=== PATIENT | female | born 1955 | race Caucasian/White ===

== ENCOUNTER 2018-04-26 11:12 | Inpatient (IN) ==
[2018-04-26] MEDS ORDERED: CLEOCIN 600 MG IV PREMIX 600 MG/50 ML BAG IV ONE (12:05)
[2018-04-26] MEDS ORDERED: MORPHINE SULFATE INJ 4 MG IVP ONE (12:08)
--- NOTE | 2018-04-26 12:15 | DR.GENAD ---
HPI Time Seen Time Seen by Provider: 04/26/18 11:23 PCP Primary Care Physician: MAIKEL AMAYA Complaint/Symptoms Chief Complaint Doctors Comments: Patient has been treated for a skin infection of the left buttock medially, with Bactrim and clindamycin; today she had a bullous lesion and was referred to the ED for evaluation. The lesion was cultured. Chief Complaint:: PT SENT OVER FROM [facility] OFF[facility] WITH C/O HAVING AN ABCESS TO HER BOTTOM AND THAT IT BUSTED SO PT WENT TO SEE PAT TODAY TO GET CULTURES FROM WOUND AND PT TOLD TO COME TO THE ER TO SEE ER RICKEY RABAGO PT STATES SHE HAD SOMETHING BITE HER ON HER BUTT, BR Source History Provided: Patient Mode of Arrival Mode of Arrival: Ambulatory Timing Onset of Chief Complaint: 04/25/18 PMH PMH Past Medical History: Yes Past Medical History: Diabetes and Hypertension Past Surgical History: Yes Past Surgical History Comment: UMBELICAL HERNIA, LAPBAND, TONCILLECTOMY Family History History of Family Medical Conditions: No Social History Does patient currently use any type of tobacco product: No Have you used tobacco products in the last 12 months: No Type of Tobacco Use: None Does any household member use tobacco: No Alcohol Use: None Do you use any recreational Drugs:: No Lives With: Family Lives Where: Home infectious screening In the last 2 months have you had wt loss of >10#?: NO Have you had fever, night sweats or hemotysis?: No Have you traveled outside the country in the last 6 months?: No Isolation: Standard PE Vital Signs Vitals: Temperature 96.2 F Pulse Rate [Left Brachial] 83 Pulse Rate 94 Respiratory Rate 20 Blood Pressure [Left Arm] 108/94 Blood Pressure 93/46 O2 Sat by Pulse Oximetry 97 General Limitations: No Limitations General Appearance: Alert, In No Apparent Distress and In Distress Head Head Exam: Normal Inspection, Atraumatic and Normocephalic ENT ENT Exam: Normal Exam, Normal Oropharynx and Normal External Ear Exam External Ear Exam: Normal External Inspection TM/Canal Exam: Bilateral: Normal Nose Exam: Normal Nose Exam Mouth Exam: Normal Inspection Throat Exam: Normal Inspection Chest Chest Inspection: Normal Inspection and Symmetric Chest Wall Rise Respiratory Respiratory Exam: Normal Lung Sounds Bilat and Accessory Muscle Use Respiratory Exam: Bilateral: Clear to Auscultation Cardiovascular Cardiovascular Exam: Regular Rate and Normal Rhythm Abdominal Exam Abdominal Exam: Normal Inspection and Normal Bowel Sounds Abdominal Tenderness: RUQ, RLQ and LUQ Back Back Exam: Normal Inspection and Full ROM Neurologic Neurological Exam: Alert, Oriented X3 and CN II-XII Intact Psychiatric Psychiatric Exam: Normal Affect and Normal Mood Skin Skin Exam: Warm, Dry, Intact and Other (superficial skin peeling of the bullous lesion with blacken skin underneath. The area was tender. A serous fluid for swabed obtained) COURSE Treatment Treatment: Clindamycin, NS, wound culture Consultation Called: 16:00 Consultation Comments: Dr. Leon agreed to admit for further evaluation and treatment ROR Labs Reviewed Laboratory Results Reviewed?: Yes Result Diagrams: 04/26/18 12:20 04/26/18 12:20 Laboratory: 04/26/18 12:05 Buttock Gram Stain - Final WBC 19.6 X10^3/uL (3.6-10.0) H 04/26/18 12:20 RBC 3.96 X10^6/uL (3.5-5.4) 04/26/18 12:20 Hgb 12.2 g/dL (12.0-16.0) 04/26/18 12:20 Hct 36.1 % (36.0-47.0) 04/26/18 12:20 MCV 91.2 fL (80.0-100.0) 04/26/18 12:20 MCH 30.8 pg (27.0-34.0) 04/26/18 12:20 MCHC 33.7 g/dL (33.0-35.0) 04/26/18 12:20 RDW 13.7 % (11.6-16.5) 04/26/18 12:20 Plt Count 334 X10^3/uL (150.0-450.0) 04/26/18 12:20 Plt Count Comment Adequate (ADEQUATE) 04/26/18 12:20 MPV 8.0 fL (7.4-11.0) 04/26/18 12:20 Neut % (Auto) 92.2 % (42.0-75.0) H 04/26/18 12:20 Lymph % (Auto) 3.5 % (21.0-51.0) L 04/26/18 12:20 [place] % (Auto) 3.7 % (0.0-13.0) 04/26/18 12:20 Eos % (Auto) 0.4 % (0.9-2.9) L 04/26/18 12:20 Baso % (Auto) 0.2 % (0.2-1.0) 04/26/18 12:20 Neut # (Auto) 18.1 x10^3/uL (2.2-4.8) H 04/26/18 12:20 Lymph # (Auto) 0.7 X10^3/uL (1.3-2.9) L 04/26/18 12:20 [place] # (Auto) 0.7 x10^3/uL (0.3-0.8) 04/26/18 12:20 Eos # (Auto) 0.1 x10^3/uL (0.0-0.2) 04/26/18 12:20 Baso # (Auto) 0.0 X10^3/uL (0.0-0.1) 04/26/18 12:20 Absolute Nucleated RBC 0.1 /100WBC 04/26/18 12:20 Total Counted 100 04/26/18 12:20 Neutrophils % (Manual) 77 % (39-76) H 04/26/18 12:20 Band Neutrophils % 10 % (0-10) 04/26/18 12:20 Lymphocytes % (Manual) 11 % (13-43) L 04/26/18 12:20 Monocytes % (Manual) 2 % (4-9) L 04/26/18 12:20 Plt Morphology Comment Normal (NORMAL) 04/26/18 12:20 RBC Morphology Normal (NORMAL) 04/26/18 12:20 Sodium 133 mmol/L (136-145) L 04/26/18 12:20 Corrected Sodium 137 mmol/L (136-145) 04/26/18 12:20 Potassium 3.7 mmol/L (3.5-5.1) 04/26/18 12:20 Chloride 98 mmol/L (98-107) 04/26/18 12:20 Carbon Dioxide 18.6 mmol/L (21-32) L 04/26/18 12:20 BUN 31 mg/dL (7-18) H 04/26/18 12:20 Creatinine 1.29 mg/dL (0.55-1.02) H 04/26/18 12:20 Est GFR (MDRD) Af Amer 54 (>60) L 04/26/18 12:20 Est GFR (MDRD) Non-Af 45 (>60) L 04/26/18 12:20 Glucose 260 mg/dL (65-99) H 04/26/18 12:20 POC Glucose (mg/dL) 248 mg/dL (65-99) H 04/26/18 13:55 Calcium 8.7 mg/dL (8.5-10.1) 04/26/18 12:20 Corrected Calcium 10.5 mg/dL (8.5-10.1) H 04/26/18 12:20 Total Bilirubin 0.40 mg/dL (0.2-1.0) 04/26/18 12:20 AST 17 Units/L (15-37) 04/26/18 12:20 ALT 19 Units/L (12-78) 04/26/18 12:20 Alkaline Phosphatase 181 Units/L (46-116) H 04/26/18 12:20 C-Reactive Protein 3.20 mg/L (0-3.0) H 04/26/18 12:20 Total Protein 6.6 g/dL (6.4-8.2) 04/26/18 12:20 Albumin 1.7 g/dL (3.4-5.0) L 04/26/18 12:20 Globulin 4.9 g/dL (2.5-4.5) H 04/26/18 12:20 Albumin/Globulin Ratio 0.3 Ratio (1.1-2.1) L 04/26/18 12:20
[2018-04-26] MEDS ORDERED: MORPHINE SULFATE INJ 4 MG ONE (12:29)
[2018-04-26] MEDS ORDERED: CLEOCIN VIAL 600 MG ONE (12:29)
[2018-04-26] MEDS ORDERED: NS 100 ML IV 100 ML IV ONE (12:32)
[2018-04-26 12:35] LABS: BASOPHILS % (AUTO) 0.2 % (0.2-1.0); EOSINOPHILS # (AUTO) 0.1 x10^3/uL (0.0-0.2); EOSINOPHILS % (AUTO) 0.4 % (0.9-2.9); HEMATOCRIT 36.1 % (36.0-47.0); HEMOGLOBIN 12.2 g/dL (12.0-16.0); LYMPHOCYTES # (AUTO) 0.7 X10^3/uL (1.3-2.9); LYMPHOCYTES % (AUTO) 3.5 % (21.0-51.0); MEAN CORPUSCULAR HEMOGLOBIN 30.8 pg (27.0-34.0); MEAN CORPUSCULAR HGB CONC 33.7 g/dL (33.0-35.0); MEAN CORPUSCULAR VOLUME 91.2 fL (80.0-100.0); MONOCYTES # (AUTO) 0.7 x10^3/uL (0.3-0.8); MONOCYTES % (AUTO) 3.7 % (0.0-13.0); NEUTROPHILS # (AUTO) 18.1 x10^3/uL (2.2-4.8); NEUTROPHILS % (AUTO) 92.2 % (42.0-75.0); PLATELET COUNT 334 X10^3/uL (150.0-450.0); RED BLOOD COUNT 3.96 X10^6/uL (3.5-5.4); RED CELL DISTRIBUTION WIDTH 13.7 % (11.6-16.5); WHITE BLOOD COUNT 19.6 X10^3/uL (3.6-10.0)
[2018-04-26] MEDS ORDERED: NS 1000 ML 1,000 ML IV SCH (13:00)
[2018-04-26 13:13] LABS: BAND NEUTROPHILS % 10 % (0-10); PLATELET MORPHOLOGY COMMENT NORMAL (NORMAL)
[2018-04-26] MEDS ORDERED: CLEOCIN 300 MG IV PREMIX 300 MG/50 ML BAG IV ONE ×2 (13:31→13:34)
[2018-04-26 14:11] LABS: ALBUMIN 1.7 g/dL (3.4-5.0); CALCIUM 8.7 mg/dL (8.5-10.1); CARBON DIOXIDE 18.6 mmol/L (21-32); COR CA(FOR HYPOALB) 10.5 mg/dL (8.5-10.1); CREATININE 1.29 mg/dL (0.55-1.02); TOTAL PROTEIN 6.6 g/dL (6.4-8.2)
[2018-04-26] MEDS ORDERED: NS 1000 ML 1,000 ML IV ONE (14:25)
[2018-04-26] MEDS ORDERED: CLEOCIN VIAL 600 MG 900 MG in D5W 50 ML IV 50 ML IV SCH (15:00)
[2018-04-26] MEDS ORDERED: NORCO 10/325 TAB PO PRN ×2 (17:12→18:00)
[2018-04-26] MEDS: NS 1000 ML 1,000 ML IV SCH ×2 (17:21→23:20)
[2018-04-26] MEDS: SNACK - Diabetic Appropriate PO SCH (20:00)
[2018-04-26] MEDS: COLACE CAP 100 MG PO SCH (20:58)
[2018-04-26] MEDS: CYMBALTA PO SCH (20:58)
[2018-04-26] MEDS: GENTAMICIN TOPICAL CRM TOP SCH (20:59)
[2018-04-26] MEDS: ULTRAM PO SCH (20:59)
[2018-04-26] MEDS ORDERED: WHITE PETROLATUM TP SCH (21:00)
[2018-04-26] MEDS ORDERED: LANTUS SC SCH (21:00)
[2018-04-26] MEDS ORDERED: [UNRECOGNIZED DRUG - OTHER] TP SCH (21:00)
[2018-04-26] MEDS ORDERED: MINERAL OIL TP SCH (21:00)
[2018-04-26] MEDS: MILK OF MAGNESIA PO SCH (21:03)
[2018-04-26] MEDS ORDERED: CLEOCIN PO SCH (22:00)
[2018-04-26] MEDS ORDERED: CLINDAMYCIN HCL 300 MG PO SCH (22:00)
[2018-04-26] MEDS: CONJ ESTROG MEDROXYPROGEST ACE PO SCH (22:31)
[2018-04-26] MEDS: MORPHINE SULFATE INJ 2 MG INJ IVP PRN (23:08)
[2018-04-27] MEDS: NORCO 5/325 MG TAB PO PRN ×2 (01:44→11:44)
[2018-04-27 02:23] LABS: BILIRUBIN,URINE 2+ (NEGATIVE); BLOOD/HEMOGLOBIN,URINE 3+ (NEGATIVE); GLUCOSE, URINE 1+ (NEGATIVE); KETONES,URINE 1+ (NEGATIVE); LEUKOCYTE ESTERASE ,URINE 1+ (NEGATIVE); NITRITES,URINE NEGATIVE (NEGATIVE); PROTEIN,URINE 2+ (NEGATIVE); UROBILINOGEN,URINE 2+ (NORMAL)
[2018-04-27 02:32] LABS: APPEARANCE,URINE HAZY (CLEAR); BACTERIA,URINE TRACE /HPF (NEGATIVE); COLOR,URINE AMBER (YELLOW); SQUAMOUS EPITHELIAL CELL,UR MODERATE /HPF (NEGATIVE)
[2018-04-27 02:33] LABS: AMORPHOUS SEDIMENT,UR 1+ /HPF (NEGATIVE); HYALINE CASTS, URINE MANY /LPF (NEGATIVE)
[2018-04-27 05:21] LABS: ALBUMIN 1.5 g/dL (3.4-5.0); CALCIUM 8.2 mg/dL (8.5-10.1); CARBON DIOXIDE 20.6 mmol/L (21-32); COR CA(FOR HYPOALB) 10.2 mg/dL (8.5-10.1); CREATININE 1.49 mg/dL (0.55-1.02); TOTAL PROTEIN 6.3 g/dL (6.4-8.2)
[2018-04-27 05:26] LABS: BASOPHILS # (AUTO) 0.1 X10^3/uL (0.0-0.1); BASOPHILS % (AUTO) 0.6 % (0.2-1.0); EOSINOPHILS # (AUTO) 0.1 x10^3/uL (0.0-0.2); EOSINOPHILS % (AUTO) 0.3 % (0.9-2.9); HEMATOCRIT 34.2 % (36.0-47.0); HEMOGLOBIN 11.6 g/dL (12.0-16.0); LYMPHOCYTES # (AUTO) 1.3 X10^3/uL (1.3-2.9); LYMPHOCYTES % (AUTO) 7.6 % (21.0-51.0); MEAN CORPUSCULAR HEMOGLOBIN 30.9 pg (27.0-34.0); MEAN CORPUSCULAR HGB CONC 33.8 g/dL (33.0-35.0); MEAN CORPUSCULAR VOLUME 91.4 fL (80.0-100.0); MONOCYTES # (AUTO) 0.7 x10^3/uL (0.3-0.8); MONOCYTES % (AUTO) 4.1 % (0.0-13.0); NEUTROPHILS # (AUTO) 15.1 x10^3/uL (2.2-4.8); NEUTROPHILS % (AUTO) 87.4 % (42.0-75.0); PLATELET COUNT 317 X10^3/uL (150.0-450.0); RED BLOOD COUNT 3.75 X10^6/uL (3.5-5.4); RED CELL DISTRIBUTION WIDTH 14.1 % (11.6-16.5); WHITE BLOOD COUNT 17.3 X10^3/uL (3.6-10.0)
[2018-04-27] MEDS: HumuLIN R SC PRN ×3 (05:47→22:52)
--- NOTE | 2018-04-27 05:48 | RAD ---
Examination: Portable AP chest History: Dehydration Comparison 05/30/2016 Findings: Continued upper normal heart size with clear lungs and pleural spaces. Impression: Considering technical difference, no change or acute chest abnormality demonstrated. Reported By:
[2018-04-27] MEDS ORDERED: POTASSIUM CHL 40 MEQ/NS 0.45% 500 ML IV PRN (06:07)
[2018-04-27] MEDS ORDERED: K-RIDER 10 MEQ/NS 100 ML 10 MEQ/100 ML BAG IV PRN (06:07)
[2018-04-27] MEDS ORDERED: POTASSIUM CHL 60 MEQ/NS 0.45% 500 ML IV PRN (06:07)
[2018-04-27] MEDS ORDERED: MICRO K EXTEN CAP 10 MEQ PO PRN (06:07)
[2018-04-27] MEDS ORDERED: POTASSIUM CHLORIDE LIQ 20 MEQ UDC PO PRN (06:07)
[2018-04-27 06:25] LABS: BAND NEUTROPHILS % 12 % (0-10); PLATELET MORPHOLOGY COMMENT NORMAL (NORMAL)
[2018-04-27 07:21] VITALS: BMI 38.9
[2018-04-27] MEDS: NS 1000 ML 1,000 ML IV SCH ×3 (07:38→20:56)
[2018-04-27] MEDS ORDERED: PROTONIX TAB 40 MG PO SCH (09:00)
[2018-04-27] MEDS ORDERED: PANTOPRAZOLE 40 MG PO SCH (09:00)
[2018-04-27] MEDS ORDERED: LISDEXAMFETAMINE 50 MG PO SCH (09:00)
[2018-04-27] MEDS: GENTAMICIN TOPICAL CRM TOP SCH ×2 (09:01→21:04)
[2018-04-27] MEDS: ULTRAM PO SCH ×2 (09:01→20:55)
[2018-04-27] MEDS: DITROPAN TAB 5 MG PO SCH (09:01)
[2018-04-27] MEDS: COZAAR PO SCH (09:02)
[2018-04-27] MEDS: LANTUS SC SCH ×2 (09:03→20:55)
[2018-04-27] MEDS: CYMBALTA PO SCH ×2 (09:13→20:55)
[2018-04-27] MEDS: CONJ ESTROG MEDROXYPROGEST ACE PO SCH (10:46)
--- NOTE | 2018-04-27 12:44 | DR.H&P ---
H&P - History & Physical for Day of: H&P Date: 04/26/18 - Chief Complaint Chief Complaint: right buttock abscess - History of Present Illness History of Present Illness: 63 WF ER ADMISSION AFTER PRESENTING WITH CO RIGHT BUTTOCK CELLULITIS. PT CO APPROX 6-7 DAYS SINCE ONSET. PT HAS TAKEN PO BACTRIM AND CLINDAMYCIN WITHOUT IMPROVEMENT. PT CO SEVERE PAIN AND DRAINAGE FROM AREA. PT DENIES FEVER, BUT CO NAUSEA. PT HAS PMH OF DM, OA, MO. PT HAD ELEVATED WBC IN ER, GIVE CLIDAMYCIN. PT ADMITTED FOR TREATMENT OF CELLULITIS. - Past Medical History Past Medical History: Hypertension, Diabetes - Past Surgical History Surgical History: Cholecystectomy, Tonsillectomy - Family History Family Medical History: Diabetes Mellitus, Cancer, Hypertension - Social History Does patient currently use any type of tobacco product: No Have you used tobacco products in the last 12 months: No Type of Tobacco Use: None Does any household member use tobacco: No Alcohol Use: None Drug Use: None - Medications Home Medications: No Known Drug Allergies Allergy (Verified 04/26/18 11:35) CONTINUE taking the following medications clindamycin HCl 300 mg PO TID 04/26/18 [History] conj estrog-medroxyprogest colten [Prempro] 1 tab PO BID 04/26/18 [History] duloxetine 30 mg PO BID 04/26/18 [History] gentamicin 1 amp TOPICAL BID 04/26/18 [History] hydrocodone-acetaminophen [[place]] 1 tab PO PRN PRN 04/26/18 [History] insulin glargine [Lantus U-100 Insulin] 55 units SUBCUT BID 04/26/18 [History] insulin regular human [Novolin R Regular U-100 Insuln] 1 unit SUBCUT PRN PRN 04/26/18 [History] lisdexamfetamine [Vyvanse] 50 mg PO DAILY 04/26/18 [History] losartan 50 mg PO DAILY 04/26/18 [History] min [id number] [Draw Out Salve] 1 g TOPICAL BID 04/26/18 [History] oxybutynin chloride 10 mg PO DAILY 04/26/18 [History] pantoprazole 40 mg PO DAILY 04/26/18 [History] sulfamethoxazole-trimethoprim [Bactrim DS] 1 tab PO BID 04/26/18 [History] tramadol [Ultram] 50 mg PO BID 04/26/18 [History] - Review of Systems Constitutional: No Symptoms Reported Eyes: No Symptoms Reported ENT: No Symptoms Reported Respiratory: No Symptoms Reported Cardiovascular: No Symptoms Reported Gastrointestinal: Nausea Genitourinary: No Symptoms Reported Musculoskeletal: Back Pain Skin: Wound Neurological: No Symptoms Reported - Physical Exam Vital Signs: Temperature 97.6 F Pulse Rate [Right Brachial] 82 Pulse Rate [Left Brachial] 100 Pulse Rate 94 Respiratory Rate 20 Blood Pressure [Right Arm] 128/58 Blood Pressure [Left Arm] 108/94 Blood Pressure 93/46 O2 Sat by Pulse Oximetry 98 Oriented: Normal Eyes: Normal Ear: Normal Nose: Normal Throat: Normal Respiratory: RLL Diminished, LLL Diminished Cardiovascular: Normal : Normal Auscultation: Bowel Sounds: Normal Palpation: Normal Tenderness: Normal Skin: Decreased Turgur, Red, Tender, Hot, Wound (LARGE AREA OF NECROTIC, BLACK TISSUE TO RIGHT BUTTOCK ~10CM LENGTH, 3CM ABSCESS FORMATION WITH THICK GREEN/YELLOW DC WITH DIFFUSE REDNESS) Musculoskeletal: Back:Lumbar Psychiatric: Anxiety Affect: Anxious Speech Pattern: Clear, Appropriate - Assessment/Plan (1) Cellulitis and abscess of buttock Status: Acute Plan: ADMIT, ADMISSION LABS. WOUND CULTURE, IV ATBX, SURGICAL CONSULT FOR I &D. VERIFY HOME MEDS. BLOOD SUGAR CONTROL (2) Necrotic eschar Status: Acute (3) Diabetes Qualifiers: Diabetes mellitus type: due to underlying condition Diabetes mellitus half-way insulin use: with half-way use Diabetes mellitus complication status: with hyperglycemia Qualified Code(s): E08.65 - Diabetes mellitus due to unde rlying condition with hyperglycemia; Z79.4 - truck terminal manager (current) use of insulin Status: Acute - Allergies Allergies/Adverse Reactions: Allergies Allergy/AdvReac Type Severity Reaction Status Date / Time No Known Drug Allergies Allergy Verified 04/26/18 11:35
[2018-04-27] MEDS ORDERED: PHARMACY CONSULT - VANCOMYCIN XX SCH (13:00)
[2018-04-27] MEDS ORDERED: VANCOMYCIN HCL 500 MG VIAL 500 MG, VANCOMYCIN HCL 1 GM VIAL 1 G in NS 250 ML IV 250 ML IV SCH (13:00)
[2018-04-27] MEDS: VANCOMYCIN HCL 500 MG VIAL 250 MG, VANCOMYCIN HCL 1 GM VIAL 1 G in NS 250 ML IV 250 ML IV SCH (13:46)
[2018-04-27] MEDS: MORPHINE SULFATE INJ 2 MG INJ IVP PRN ×2 (13:57→17:51)
[2018-04-27] MEDS ORDERED: VANCOMYCIN HCL 500 MG VIAL 250 MG, VANCOMYCIN HCL 1 GM VIAL 1 G in NS 250 ML IV 250 ML IV SCH (14:00)
[2018-04-27] MEDS: LEVAQUIN PREMIX IV 750 MG 750 MG/150 ML BAG IV SCH (20:55)
[2018-04-27] MEDS: COLACE CAP 100 MG PO SCH (20:56)
[2018-04-27] MEDS ORDERED: CLEOCIN VIAL 600 MG 900 MG in D5W 50 ML IV 50 ML IV SCH (22:00)
[2018-04-27] MEDS: SNACK - Diabetic Appropriate PO SCH (22:29)
[2018-04-27] MEDS: MILK OF MAGNESIA PO SCH (22:30)
[2018-04-27] MEDS: CLEOCIN VIAL 600 MG 900 MG in D5W 50 ML IV 50 ML IV SCH (23:44)
[2018-04-28] MEDS: MORPHINE SULFATE INJ 2 MG INJ IVP PRN ×3 (02:29→22:47)
[2018-04-28 05:30] LABS: BASOPHILS # (AUTO) 0.1 X10^3/uL (0.0-0.1); BASOPHILS % (AUTO) 1.1 % (0.2-1.0); EOSINOPHILS % (AUTO) 0.4 % (0.9-2.9); HEMOGLOBIN 11.5 g/dL (12.0-16.0); LYMPHOCYTES # (AUTO) 1.1 X10^3/uL (1.3-2.9); LYMPHOCYTES % (AUTO) 8.9 % (21.0-51.0); MEAN CORPUSCULAR HEMOGLOBIN 30.7 pg (27.0-34.0); MEAN CORPUSCULAR HGB CONC 33.9 g/dL (33.0-35.0); MEAN CORPUSCULAR VOLUME 90.4 fL (80.0-100.0); MONOCYTES # (AUTO) 0.6 x10^3/uL (0.3-0.8); MONOCYTES % (AUTO) 5.1 % (0.0-13.0); NEUTROPHILS # (AUTO) 10.7 x10^3/uL (2.2-4.8); NEUTROPHILS % (AUTO) 84.5 % (42.0-75.0); PLATELET COUNT 348 X10^3/uL (150.0-450.0); RED BLOOD COUNT 3.76 X10^6/uL (3.5-5.4); WHITE BLOOD COUNT 12.6 X10^3/uL (3.6-10.0)
[2018-04-28] MEDS: CLEOCIN VIAL 600 MG 900 MG in D5W 50 ML IV 50 ML IV SCH ×3 (05:30→22:00)
[2018-04-28 05:45] LABS: ALBUMIN 1.5 g/dL (3.4-5.0); CARBON DIOXIDE 22.2 mmol/L (21-32); CREATININE 1.25 mg/dL (0.55-1.02); TOTAL PROTEIN 6.4 g/dL (6.4-8.2)
[2018-04-28 06:07] LABS: BAND NEUTROPHILS % 8 % (0-10); PLATELET MORPHOLOGY COMMENT NORMAL (NORMAL)
[2018-04-28] MEDS: LANTUS SC SCH ×2 (08:59→20:27)
[2018-04-28] MEDS: GENTAMICIN TOPICAL CRM TOP SCH ×2 (09:01→20:27)
[2018-04-28] MEDS: LEVAQUIN PREMIX IV 750 MG 750 MG/150 ML BAG IV SCH (09:01)
[2018-04-28] MEDS: ULTRAM PO SCH ×2 (09:01→20:26)
[2018-04-28] MEDS: DITROPAN TAB 5 MG PO SCH (09:02)
[2018-04-28] MEDS: COZAAR PO SCH (09:02)
[2018-04-28] MEDS: CYMBALTA PO SCH ×2 (09:06→20:26)
--- NOTE | 2018-04-28 11:33 | PCM.PROG ---
Progress Note - Progress Note for Day of Date of Exam: 04/28/18 - Subjective Subjective: 63 WF ER ADMISSION WITH CELLULITIS AND ABSCESS TO RIGHT BUTTOCK, POSITIVE FOR STAPH. PT CURRENTLY ON IV ATBX, WBC12.6 THIS AM. PT CONTINUES TO CO SEVERE PAIN TO AREA AND FOUL DRAINAGE FOR ABSCESS. SURGEON CONSULTED FOR EVALUATION FOR DEBRIDEMENT/I &D - Past Medical Family Social History Past Med/Fam/Surg Hx: No changes since H&P Allergies: Allergies No Known Drug Allergies Allergy (Verified 04/26/18 11:35) - Review of Systems ROS: No change since H&P - Vital Signs and I&O's Vital Signs: Temperature 98.1 F Pulse Rate [Right Brachial] 84 Pulse Rate [Left Brachial] 100 Pulse Rate 94 Respiratory Rate 18 Blood Pressure [Right Arm] 121/88 Blood Pressure [Left Arm] 108/94 Blood Pressure 93/46 O2 Sat by Pulse Oximetry 98 Intake and Output: Intake & Output 04/25/18 04/26/18 04/27/18 04/28/18 11:59 11:59 11:59 11:59 Intake Total 1289 / 1289 2820 / 2820 Output Total 200 / 200 Balance 1289 / 1289 2620 / 2620 - Physical Exam Oriented: Normal Eyes: Normal Ear: Normal Nose: Normal Throat: Normal Respiratory: Diminished Cardiovascular: Normal : Normal Auscultation: Bowel Sounds: Normal Tenderness: Normal Skin: Decreased Turgur, Red, Tender, Hot, Wound (LARGE AREA OF NECROTIC, BLACK TISSUE TO RIGHT BUTTOCK ~10CM LENGTH, 3CM ABSCESS FORMATION WITH THICK GREEN/YELLOW DC WITH DIFFUSE REDNESS) Musculoskeletal: Back:Lumbar Psychiatric: Anxiety Affect: Anxious Speech Pattern: Clear, Appropriate - Laboratory and Diagnostics Result Diagrams: 04/28/18 04:33 04/28/18 04:33 Labs: 04/26/18 12:05 Buttock Gram Stain - Final 04/26/18 12:05 Buttock Wound Culture - Preliminary Laboratory WBC 12.6 X10^3/uL (3.6-10.0) H 04/28/18 04:33 RBC 3.76 X10^6/uL (3.5-5.4) 04/28/18 04:33 Hgb 11.5 g/dL (12.0-16.0) L 04/28/18 04:33 Hct 34.0 % (36.0-47.0) L 04/28/18 04:33 MCV 90.4 fL (80.0-100.0) 04/28/18 04:33 MCH 30.7 pg (27.0-34.0) 04/28/18 04:33 MCHC 33.9 g/dL (33.0-35.0) 04/28/18 04:33 RDW 14.0 % (11.6-16.5) 04/28/18 04:33 Plt Count 348 X10^3/uL (150.0-450.0) 04/28/18 04:33 Plt Count Comment Adequate (ADEQUATE) 04/28/18 04:33 MPV 8.0 fL (7.4-11.0) 04/28/18 04:33 Neut % (Auto) 84.5 % (42.0-75.0) H 04/28/18 04:33 Lymph % (Auto) 8.9 % (21.0-51.0) L 04/28/18 04:33 [place] % (Auto) 5.1 % (0.0-13.0) 04/28/18 04:33 Eos % (Auto) 0.4 % (0.9-2.9) L 04/28/18 04:33 Baso % (Auto) 1.1 % (0.2-1.0) H 04/28/18 04:33 Neut # (Auto) 10.7 x10^3/uL (2.2-4.8) H 04/28/18 04:33 Lymph # (Auto) 1.1 X10^3/uL (1.3-2.9) L 04/28/18 04:33 [place] # (Auto) 0.6 x10^3/uL (0.3-0.8) 04/28/18 04:33 Eos # (Auto) 0.0 x10^3/uL (0.0-0.2) 04/28/18 04:33 Baso # (Auto) 0.1 X10^3/uL (0.0-0.1) 04/28/18 04:33 Absolute Nucleated RBC 0.0 /100WBC 04/28/18 04:33 Total Counted 100 04/28/18 04:33 Neutrophils % (Manual) 68 % (39-76) 04/28/18 04:33 Band Neutrophils % 8 % (0-10) 04/28/18 04:33 Lymphocytes % (Manual) 15 % (13-43) 04/28/18 04:33 Monocytes % (Manual) 8 % (4-9) 04/28/18 04:33 Eosinophils % (Manual) 1 % (0-6) 04/27/18 04:46 Plt Morphology Comment Normal (NORMAL) 04/28/18 04:33 RBC Morphology Normal (NORMAL) 04/28/18 04:33 Sodium 142 mmol/L (136-145) 04/28/18 04:33 Corrected Sodium 142 mmol/L (136-145) 04/28/18 04:33 Potassium 3.0 mmol/L (3.5-5.1) L* 04/28/18 04:33 Chloride 106 mmol/L (98-107) 04/28/18 04:33 Carbon Dioxide 22.2 mmol/L (21-32) 04/28/18 04:33 BUN 34 mg/dL (7-18) H 04/28/18 04:33 Creatinine 1.25 mg/dL (0.55-1.02) H 04/28/18 04:33 Est GFR (MDRD) Af Amer 56 (>60) L 04/28/18 04:33 Est GFR (MDRD) Non-Af 46 (>60) L 04/28/18 04:33 Glucose 118 mg/dL (65-99) H 04/28/18 04:33 POC Glucose (mg/dL) 143 mg/dL (65-99) H 04/28/18 11:23 Calcium 8.0 mg/dL (8.5-10.1) L 04/28/18 04:33 Corrected Calcium 10.0 mg/dL (8.5-10.1) 04/28/18 04:33 Magnesium 2.2 mg/dL (1.7-2.9) 04/27/18 04:46 Total Bilirubin 0.30 mg/dL (0.2-1.0) 04/28/18 04:33 AST 34 Units/L (15-37) 04/28/18 04:33 ALT 36 Units/L (12-78) 04/28/18 04:33 Alkaline Phosphatase 360 Units/L (46-116) H 04/28/18 04:33 C-Reactive Protein 3.20 mg/L (0-3.0) H 04/26/18 12:20 Total Protein 6.4 g/dL (6.4-8.2) 04/28/18 04:33 Albumin 1.5 g/dL (3.4-5.0) L 04/28/18 04:33 Globulin 4.9 g/dL (2.5-4.5) H 04/28/18 04:33 Albumin/Globulin Ratio 0.3 Ratio (1.1-2.1) L 04/28/18 04:33 Specimen Type Catherized urine 04/27/18 02:00 Urine Color [place] (YELLOW) 04/27/18 02:00 Urine Appearance Hazy (CLEAR) 04/27/18 02:00 Urine pH 5.0 (5.0 - 8.0) 04/27/18 02:00 Ur Specific [place] 1.025 (1.000-1.030) 04/27/18 02:00 Urine Protein 2+ (NEGATIVE) 04/27/18 02:00 Urine Glucose (UA) 1+ (NEGATIVE) 04/27/18 02:00 Urine Ketones 1+ (NEGATIVE) 04/27/18 02:00 Urine Occult Blood 3+ (NEGATIVE) 04/27/18 02:00 Urine Nitrite Negative (NEGATIVE) 04/27/18 02:00 Urine Bilirubin 2+ (NEGATIVE) 04/27/18 02:00 Urine Urobilinogen 2+ (NORMAL) 04/27/18 02:00 Ur Leukocyte Esterase 1+ (NEGATIVE) 04/27/18 02:00 Urine RBC 5-10 /HPF (NONE SEEN) 04/27/18 02:00 Urine WBC 5-10 /HPF (NONE SEEN) 04/27/18 02:00 Ur Squamous Epith Cells Moderate /HPF (NEGATIVE) 04/27/18 02:00 Amorphous Sediment 1+ /HPF (NEGATIVE) 04/27/18 02:00 Urine Bacteria Trace /HPF (NEGATIVE) 04/27/18 02:00 Hyaline Casts Many /LPF (NEGATIVE) 04/27/18 02:00 Ur Culture Indicated? No/not indicated 04/27/18 02:00 - Plan (1) Cellulitis and abscess of buttock Status: Acute Plan: AM. WOUND CULTURE, IV ATBX, SURGICAL CONSULT FOR I &D. BP MONITORING, WOUND CARE. BLOOD SUGAR CONTROL (2) Necrotic eschar Status: Resolved (3) Diabetes Status: Acute Qualifiers: Diabetes mellitus type: due to underlying condition Diabetes mellitus continuous churn buttermaker insulin use: with continuous churn buttermaker use Diabetes mellitus complication status: with hyperglycemia Qualified Code(s): E08.65 - Diabetes mellitus due to underlying condition with hyperglycemia; Z79.4 - local intermodal truck driver (current) use of insulin
[2018-04-28] MEDS: VANCOMYCIN HCL 500 MG VIAL 250 MG, VANCOMYCIN HCL 1 GM VIAL 1 G in NS 250 ML IV 250 ML IV SCH (14:48)
[2018-04-28] MEDS: K-DUR TAB 20 MEQ PO PRN (18:32)
[2018-04-28] MEDS: COLACE CAP 100 MG PO SCH (20:26)
[2018-04-28] MEDS: SNACK - Diabetic Appropriate PO SCH (20:30)
[2018-04-28] MEDS: NS 1000 ML 1,000 ML IV SCH (22:43)
[2018-04-28] MEDS: MILK OF MAGNESIA PO SCH (22:43)
[2018-04-28] MEDS: NORCO 5/325 MG TAB PO PRN (23:47)
[2018-04-29] MEDS: NS 1000 ML 1,000 ML IV SCH ×2 (02:53→19:44)
[2018-04-29] MEDS: NORCO 5/325 MG TAB PO PRN (04:53)
[2018-04-29 05:21] LABS: BASOPHILS % (AUTO) 0.4 % (0.2-1.0); EOSINOPHILS % (AUTO) 0.2 % (0.9-2.9); HEMATOCRIT 33.6 % (36.0-47.0); HEMOGLOBIN 11.5 g/dL (12.0-16.0); LYMPHOCYTES # (AUTO) 1.1 X10^3/uL (1.3-2.9); LYMPHOCYTES % (AUTO) 10.4 % (21.0-51.0); MEAN CORPUSCULAR HEMOGLOBIN 31.1 pg (27.0-34.0); MEAN CORPUSCULAR HGB CONC 34.2 g/dL (33.0-35.0); MEAN PLATELET VOLUME 7.6 fL (7.4-11.0); MONOCYTES # (AUTO) 0.6 x10^3/uL (0.3-0.8); MONOCYTES % (AUTO) 5.6 % (0.0-13.0); NEUTROPHILS # (AUTO) 9.1 x10^3/uL (2.2-4.8); NEUTROPHILS % (AUTO) 83.4 % (42.0-75.0); PLATELET COUNT 328 X10^3/uL (150.0-450.0); RED BLOOD COUNT 3.69 X10^6/uL (3.5-5.4); RED CELL DISTRIBUTION WIDTH 13.8 % (11.6-16.5); WHITE BLOOD COUNT 10.9 X10^3/uL (3.6-10.0)
[2018-04-29] MEDS: CLEOCIN VIAL 600 MG 900 MG in D5W 50 ML IV 50 ML IV SCH ×3 (05:28→22:03)
[2018-04-29 05:43] LABS: ALANINE AMINOTRANSFERASE 39 Units/L (12-78); ALBUMIN 1.6 g/dL (3.4-5.0); ALKALINE PHOSPHATASE 399 Units/L (46-116); ASPARTATE AMINO TRANSFERASE 46 Units/L (15-37); BLOOD UREA NITROGEN 20 mg/dL (7-18); CALCIUM 8.1 mg/dL (8.5-10.1); CARBON DIOXIDE 22.6 mmol/L (21-32); CHLORIDE 111 mmol/L (98-107); CREATININE 0.89 mg/dL (0.55-1.02); SODIUM 144 mmol/L (136-145); TOTAL PROTEIN 6.5 g/dL (6.4-8.2); eGFR NON BLACK RACES > 60 (>60)
[2018-04-29 06:02] LABS: BAND NEUTROPHILS % 12 % (0-10); PLATELET MORPHOLOGY COMMENT NORMAL (NORMAL)
[2018-04-29] MEDS ORDERED: MORPHINE SULFATE INJ 4 MG IVP PRN (08:47)
[2018-04-29] MEDS: MORPHINE SULFATE INJ 2 MG INJ IVP PRN ×3 (08:58→20:05)
[2018-04-29] MEDS: ULTRAM PO SCH ×2 (09:00→20:05)
[2018-04-29] MEDS: GENTAMICIN TOPICAL CRM TOP SCH ×2 (09:00→20:04)
[2018-04-29] MEDS: LEVAQUIN PREMIX IV 750 MG 750 MG/150 ML BAG IV SCH (09:09)
[2018-04-29] MEDS ORDERED: BACITRACIN VIAL ONE (09:14)
[2018-04-29] MEDS ORDERED: FENTANYL INJ 100 mcg ONE (09:16)
[2018-04-29] MEDS: LANTUS SC SCH (09:17)
[2018-04-29] MEDS ORDERED: NS 1000 ML 1,000 ML ONE (09:18)
[2018-04-29] MEDS ORDERED: XYLOCAINE 2 % (PLAIN) ONE (09:29)
[2018-04-29] MEDS ORDERED: HYDROGEN PEROXIDE 3% ONE (09:29)
[2018-04-29] MEDS ORDERED: DILAUDID INJ IVP PRN (10:33)
[2018-04-29] MEDS ORDERED: REGLAN INJ 10 MG VIAL IVP PRN (10:33)
[2018-04-29] MEDS ORDERED: ZOFRAN INJ 4 MG VIAL IVP PRN (10:33)
[2018-04-29] MEDS ORDERED: BENADRYL INJ 50 MG VIAL IVP PRN (10:33)
[2018-04-29] MEDS ORDERED: PHENERGAN INJ 25 MG IVP PRN (10:33)
--- NOTE | 2018-04-29 10:54 | OR.GENERIC ---
Post-Op Note Generic - Post-Op Note Operative Report: excisional debridement of large necrotic Rt buttock abscess 15 x 10 x 3 cm . was irrigated and packed with Iodoform .. on IV Vanco till C&S ia available .
[2018-04-29 12:16] LABS: BILIRUBIN,URINE NEGATIVE (NEGATIVE); BLOOD/HEMOGLOBIN,URINE 3+ (NEGATIVE); GLUCOSE, URINE NEGATIVE (NEGATIVE); KETONES,URINE NEGATIVE (NEGATIVE); LEUKOCYTE ESTERASE ,URINE NEGATIVE (NEGATIVE); NITRITES,URINE NEGATIVE (NEGATIVE); PROTEIN,URINE 1+ (NEGATIVE); UROBILINOGEN,URINE NORMAL (NORMAL)
[2018-04-29 12:28] LABS: APPEARANCE,URINE HAZY (CLEAR); COLOR,URINE YELLOW (YELLOW)
[2018-04-29 12:29] LABS: AMORPHOUS SEDIMENT,UR 1+ /HPF (NEGATIVE); BACTERIA,URINE TRACE /HPF (NEGATIVE); RBC,URINE 0-2 /HPF (NONE SEEN); SQUAMOUS EPITHELIAL CELL,UR RARE /HPF (NEGATIVE)
[2018-04-29] MEDS: CYMBALTA PO SCH ×2 (14:14→20:04)
[2018-04-29] MEDS: COZAAR PO SCH (14:14)
[2018-04-29] MEDS: DITROPAN TAB 5 MG PO SCH (14:15)
[2018-04-29] MEDS ORDERED: XYLOCAINE 1 % (PLAIN) ONE (14:32)
[2018-04-29] MEDS: VANCOMYCIN HCL 500 MG VIAL 250 MG, VANCOMYCIN HCL 1 GM VIAL 1 G in NS 250 ML IV 250 ML IV SCH (14:45)
[2018-04-29] MEDS ORDERED: CONSULT PHARMACY - ANTIBIOTIC XX SCH (15:00)
--- NOTE | 2018-04-29 15:11 | DR.UPDATE ---
H&P Update History and Physical Update: History and Physical reviewed and patient examined. Changes noted: NO Yes with the following:Agree with H&P. will place PICC for long-term abx therapy. Procedures (ALL) - Central Line Placement PCM.CLCO: written consent Time out performed: Yes Patient placed pm monitor/pulse ox: Yes prep: mask, gown, gloves, other Centrial line prep: chlorhexidine scrub Local anesthsia used: lidocane 1% Ultrasound used for placement: Yes (left basilic id'd) Central line lumen ininserted: double (5fr powerpicc. trimmed to 42cm with <1cm exposed.) Post procedure: good blood return, all ports aspirated, flushed,capped, sterile dressing applied Post procedure xray: tip oc catheter in good position Patient tolerated procedure: Yes Complications: none
[2018-04-29] MEDS ORDERED: REGLAN INJ 10 MG VIAL ONE (15:57)
[2018-04-29] MEDS ORDERED: DIPRIVAN VIAL ONE (15:57)
[2018-04-29] MEDS ORDERED: SUPRANE IN ONE (15:57)
[2018-04-29] MEDS ORDERED: VERSED ONE (15:57)
[2018-04-29] MEDS: SNACK - Diabetic Appropriate PO SCH (19:45)
[2018-04-29] MEDS: MILK OF MAGNESIA PO SCH (20:04)
[2018-04-29] MEDS: COLACE CAP 100 MG PO SCH (20:04)
[2018-04-30] MEDS: MORPHINE SULFATE INJ 2 MG INJ IVP PRN ×3 (01:03→13:31)
[2018-04-30] MEDS: CLEOCIN VIAL 600 MG 900 MG in D5W 50 ML IV 50 ML IV SCH (05:03)
[2018-04-30] MEDS: NS 1000 ML 1,000 ML IV SCH ×3 (05:03→14:24)
[2018-04-30 05:08] LABS: BASOPHILS # (AUTO) 0.1 X10^3/uL (0.0-0.1); BASOPHILS % (AUTO) 0.5 % (0.2-1.0); EOSINOPHILS % (AUTO) 0.3 % (0.9-2.9); HEMATOCRIT 33.4 % (36.0-47.0); HEMOGLOBIN 11.1 g/dL (12.0-16.0); LYMPHOCYTES # (AUTO) 1.3 X10^3/uL (1.3-2.9); LYMPHOCYTES % (AUTO) 9.2 % (21.0-51.0); MEAN CORPUSCULAR HEMOGLOBIN 30.4 pg (27.0-34.0); MEAN CORPUSCULAR HGB CONC 33.3 g/dL (33.0-35.0); MEAN CORPUSCULAR VOLUME 91.1 fL (80.0-100.0); MEAN PLATELET VOLUME 7.3 fL (7.4-11.0); MONOCYTES # (AUTO) 0.7 x10^3/uL (0.3-0.8); MONOCYTES % (AUTO) 5.2 % (0.0-13.0); NEUTROPHILS % (AUTO) 84.8 % (42.0-75.0); PLATELET COUNT 214 X10^3/uL (150.0-450.0); RED BLOOD COUNT 3.67 X10^6/uL (3.5-5.4); RED CELL DISTRIBUTION WIDTH 14.4 % (11.6-16.5); WHITE BLOOD COUNT 14.2 X10^3/uL (3.6-10.0)
[2018-04-30 05:17] LABS: ALANINE AMINOTRANSFERASE 33 Units/L (12-78); ALBUMIN 1.6 g/dL (3.4-5.0); ALKALINE PHOSPHATASE 356 Units/L (46-116); ASPARTATE AMINO TRANSFERASE 31 Units/L (15-37); BLOOD UREA NITROGEN 12 mg/dL (7-18); CALCIUM 7.9 mg/dL (8.5-10.1); CARBON DIOXIDE 22.8 mmol/L (21-32); CHLORIDE 111 mmol/L (98-107); COR CA(FOR HYPOALB) 9.8 mg/dL (8.5-10.1); CREATININE 0.81 mg/dL (0.55-1.02); SODIUM 144 mmol/L (136-145); TOTAL PROTEIN 6.4 g/dL (6.4-8.2); eGFR NON BLACK RACES > 60 (>60)
[2018-04-30 06:01] LABS: BAND NEUTROPHILS % 6 % (0-10); PLATELET MORPHOLOGY COMMENT NORMAL (NORMAL)
[2018-04-30] MEDS: K-DUR TAB 20 MEQ PO PRN ×2 (06:10→20:58)
[2018-04-30] MEDS: NORCO 5/325 MG TAB PO PRN (06:14)
[2018-04-30] MEDS: ULTRAM PO SCH ×2 (10:32→20:57)
[2018-04-30] MEDS: LEVAQUIN PREMIX IV 750 MG 750 MG/150 ML BAG IV SCH (10:32)
[2018-04-30] MEDS: DITROPAN TAB 5 MG PO SCH (10:33)
[2018-04-30] MEDS: COZAAR PO SCH (10:33)
[2018-04-30] MEDS: CYMBALTA PO SCH ×2 (10:44→20:56)
[2018-04-30] MEDS: GENTAMICIN TOPICAL CRM TOP SCH ×2 (10:46→20:56)
[2018-04-30] MEDS ORDERED: PHARMACY COMMENT IV NR (13:30)
[2018-04-30 14:12] LABS: CREATININE 0.76 mg/dL (0.55-1.02); VANCOMYCIN,TROUGH 7.9 ug/mL (15-20)
--- NOTE | 2018-04-30 17:38 | PCM.PROG ---
Progress Note - Progress Note for Day of Date of Exam: 04/30/18 - Subjective Subjective: 63 WF ER ADMISSION WITH CELLULITIS AND ABSCESS TO RIGHT BUTTOCK, POSITIVE FOR STAPH. 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 PT REPORTS SLIGHT IMPROVEMENT IN PAIN THIS AM. TISSUE TO RIGHT BUTTOCK PINK WITH MILD LOCALIZED REDNESS, IMPROVING ERYTHEMA TO SURROUNDING TISSUE, PACKING INTACT - Past Medical Family Social History Past Med/Fam/Surg Hx: No changes since H&P Allergies: Allergies No Known Drug Allergies Allergy (Verified 04/26/18 11:35) - Review of Systems ROS: No change since H&P - Vital Signs and I&O's Vital Signs: Temperature 98.4 F Pulse Rate [Right Brachial] 97 Pulse Rate [Left Brachial] 87 Pulse Rate 88 Respiratory Rate 18 Blood Pressure [Right Arm] 145/66 Blood Pressure [Left Arm] 131/91 Blood Pressure 127/57 O2 Sat by Pulse Oximetry 98 Intake and Output: Intake & Output 04/28/18 04/29/18 04/30/18 05/01/18 11:59 11:59 11:59 11:59 Intake Total 2820 / 2820 2081 / 2081 2034 / 2034 Output Total 200 / 200 1500 / 1500 1475 / 1475 Balance 2620 / 2620 582 / 582 560 / 560 - Physical Exam Oriented: Normal Eyes: Normal Ear: Normal Nose: Normal Throat: Normal Respiratory: Diminished Cardiovascular: Normal : Normal Auscultation: Bowel Sounds: Normal Tenderness: Normal Skin: Decreased Turgur, Red, Tender, Hot, Wound (RIGHT BUTTOCK WOUND S/P DEBRIDEMENT, TISSUE PINK LOCALIZED REDNESS) Musculoskeletal: Back:Lumbar Psychiatric: Anxiety Mood Description: Calm Affect: Anxious Speech Pattern: Clear, Appropriate - Laboratory and Diagnostics Result Diagrams: 04/30/18 04:30 04/30/18 13:50 Labs: 04/29/18 10:02 Buttock Gram Stain - Final 04/29/18 10:02 Buttock Wound Culture - Preliminary 04/26/18 12:05 Buttock Gram Stain - Final 04/26/18 12:05 Buttock Wound Culture - Final 04/27/18 13:15 Blood Blood Culture - Preliminary 04/27/18 13:06 Blood Blood Culture - Preliminary Laboratory WBC 14.2 X10^3/uL (3.6-10.0) H 04/30/18 04:30 RBC 3.67 X10^6/uL (3.5-5.4) 04/30/18 04:30 Hgb 11.1 g/dL (12.0-16.0) L 04/30/18 04:30 Hct 33.4 % (36.0-47.0) L 04/30/18 04:30 MCV 91.1 fL (80.0-100.0) 04/30/18 04:30 MCH 30.4 pg (27.0-34.0) 04/30/18 04:30 MCHC 33.3 g/dL (33.0-35.0) 04/30/18 04:30 RDW 14.4 % (11.6-16.5) 04/30/18 04:30 Plt Count 214 X10^3/uL (150.0-450.0) 04/30/18 04:30 Plt Count Comment Adequate (ADEQUATE) 04/30/18 04:30 MPV 7.3 fL (7.4-11.0) L 04/30/18 04:30 Neut % (Auto) 84.8 % (42.0-75.0) H 04/30/18 04:30 Lymph % (Auto) 9.2 % (21.0-51.0) L 04/30/18 04:30 [place] % (Auto) 5.2 % (0.0-13.0) 04/30/18 04:30 Eos % (Auto) 0.3 % (0.9-2.9) L 04/30/18 04:30 Baso % (Auto) 0.5 % (0.2-1.0) 04/30/18 04:30 Neut # (Auto) 12.0 x10^3/uL (2.2-4.8) H 04/30/18 04:30 Lymph # (Auto) 1.3 X10^3/uL (1.3-2.9) 04/30/18 04:30 [place] # (Auto) 0.7 x10^3/uL (0.3-0.8) 04/30/18 04:30 Eos # (Auto) 0.0 x10^3/uL (0.0-0.2) 04/30/18 04:30 Baso # (Auto) 0.1 X10^3/uL (0.0-0.1) 04/30/18 04:30 Absolute Nucleated RBC 0.1 /100WBC 04/30/18 04:30 Total Counted 100 04/30/18 04:30 Neutrophils % (Manual) 73 % (39-76) 04/30/18 04:30 Band Neutrophils % 6 % (0-10) 04/30/18 04:30 Lymphocytes % (Manual) 14 % (13-43) 04/30/18 04:30 Monocytes % (Manual) 7 % (4-9) 04/30/18 04:30 Eosinophils % (Manual) 1 % (0-6) 04/29/18 04:31 Plt Morphology Comment Normal (NORMAL) 04/30/18 04:30 RBC Morphology Normal (NORMAL) 04/30/18 04:30 Sodium 144 mmol/L (136-145) 04/30/18 04:30 Corrected Sodium TNP 04/30/18 04:30 Potassium 3.5 mmol/L (3.5-5.1) 04/30/18 04:30 Chloride 111 mmol/L (98-107) H 04/30/18 04:30 Carbon Dioxide 22.8 mmol/L (21-32) 04/30/18 04:30 BUN 12 mg/dL (7-18) 04/30/18 04:30 Creatinine 0.76 mg/dL (0.55-1.02) 04/30/18 13:50 Est GFR (MDRD) Af Amer > 60 (>60) 04/30/18 04:30 Est GFR (MDRD) Non-Af > 60 (>60) 04/30/18 04:30 Glucose 100 mg/dL (65-99) H 04/30/18 04:30 POC Glucose (mg/dL) 120 mg/dL (65-99) H 04/30/18 16:30 Calcium 7.9 mg/dL (8.5-10.1) L 04/30/18 04:30 Corrected Calcium 9.8 mg/dL (8.5-10.1) 04/30/18 04:30 Magnesium 2.2 mg/dL (1.7-2.9) 04/27/18 04:46 Total Bilirubin 0.30 mg/dL (0.2-1.0) 04/30/18 04:30 AST 31 Units/L (15-37) 04/30/18 04:30 ALT 33 Units/L (12-78) 04/30/18 04:30 Alkaline Phosphatase 356 Units/L (46-116) H 04/30/18 04:30 C-Reactive Protein 3.20 mg/L (0-3.0) H 04/26/18 12:20 Total Protein 6.4 g/dL (6.4-8.2) 04/30/18 04:30 Albumin 1.6 g/dL (3.4-5.0) L 04/30/18 04:30 Globulin 4.8 g/dL (2.5-4.5) H 04/30/18 04:30 Albumin/Globulin Ratio 0.3 Ratio (1.1-2.1) L 04/30/18 04:30 Specimen Type Catherized urine 04/29/18 11:30 Urine Color Yellow (YELLOW) 04/29/18 11:30 Urine Appearance Hazy (CLEAR) 04/29/18 11:30 Urine pH 5.0 (5.0 - 8.0) 04/29/18 11:30 Ur Specific [place] 1.015 (1.000-1.030) 04/29/18 11:30 Urine Protein 1+ (NEGATIVE) 04/29/18 11:30 Urine Glucose (UA) Negative (NEGATIVE) 04/29/18 11:30 Urine Ketones Negative (NEGATIVE) 04/29/18 11:30 Urine Occult Blood 3+ (NEGATIVE) 04/29/18 11:30 Urine Nitrite Negative (NEGATIVE) 04/29/18 11:30 Urine Bilirubin Negative (NEGATIVE) 04/29/18 11:30 Urine Urobilinogen Normal (NORMAL) 04/29/18 11:30 Ur Leukocyte Esterase Negative (NEGATIVE) 04/29/18 11:30 Urine RBC 0-2 /HPF (NONE SEEN) 04/29/18 11:30 Urine WBC 0-2 /HPF (NONE SEEN) 04/29/18 11:30 Ur Squamous Epith Cells Rare /HPF (NEGATIVE) 04/29/18 11:30 Amorphous Sediment 1+ /HPF (NEGATIVE) 04/29/18 11:30 Urine Bacteria Trace /HPF (NEGATIVE) 04/29/18 11:30 Hyaline Casts Many /LPF (NEGATIVE) 04/27/18 02:00 Ur Culture Indicated? No/not indicated 04/29/18 11:30 Vancomycin Trough 7.9 ug/mL (15-20) L 04/30/18 13:50 Tissue Pathology To follow 04/29/18 10:05 - Plan (1) Cellulitis and abscess of buttock Status: Acute Plan: AM LABS. WOUND CULTURE, IV ATBX, DR GELLER CONSULTING. BP MONITORING, WOUND CARE. BLOOD SUGAR CONTROL (2) Necrotic eschar Status: Resolved (3) Diabetes Status: Acute Qualifiers: Diabetes mellitus type: due to underlying condition Diabetes mellitus installer insulin use: with longterm use Diabetes mellitus complication status: with hyperglycemia Qualified Code(s): E08.65 - Diabetes mellitus due to underlying condition with hyperglycemia; Z79.4 - pulling unit floorhand (current) use of insulin
[2018-04-30] MEDS: MILK OF MAGNESIA PO SCH (20:56)
[2018-04-30] MEDS: SNACK - Diabetic Appropriate PO SCH (20:56)
[2018-04-30] MEDS: COLACE CAP 100 MG PO SCH (20:56)
[2018-04-30] MEDS: VANCOMYCIN HCL 1 GM VIAL 1 G in NS 250 ML IV 250 ML IV SCH (20:57)
[2018-05-01] MEDS: MORPHINE SULFATE INJ 2 MG INJ IVP PRN (00:45)
[2018-05-01] MEDS: NS 1000 ML 1,000 ML IV SCH ×2 (04:13→20:21)
[2018-05-01 06:28] LABS: BASOPHILS % (AUTO) 0.4 % (0.2-1.0); EOSINOPHILS # (AUTO) 0.1 x10^3/uL (0.0-0.2); EOSINOPHILS % (AUTO) 1.1 % (0.9-2.9); HEMATOCRIT 31.5 % (36.0-47.0); HEMOGLOBIN 10.4 g/dL (12.0-16.0); LYMPHOCYTES # (AUTO) 1.5 X10^3/uL (1.3-2.9); LYMPHOCYTES % (AUTO) 12.4 % (21.0-51.0); MEAN CORPUSCULAR HEMOGLOBIN 30.5 pg (27.0-34.0); MEAN CORPUSCULAR HGB CONC 33.1 g/dL (33.0-35.0); MEAN CORPUSCULAR VOLUME 91.9 fL (80.0-100.0); MEAN PLATELET VOLUME 7.4 fL (7.4-11.0); MONOCYTES # (AUTO) 0.6 x10^3/uL (0.3-0.8); NEUTROPHILS # (AUTO) 9.6 x10^3/uL (2.2-4.8); NEUTROPHILS % (AUTO) 81.1 % (42.0-75.0); PLATELET COUNT 141 X10^3/uL (150.0-450.0); RED BLOOD COUNT 3.43 X10^6/uL (3.5-5.4); RED CELL DISTRIBUTION WIDTH 14.5 % (11.6-16.5); WHITE BLOOD COUNT 11.9 X10^3/uL (3.6-10.0)
[2018-05-01 06:59] LABS: ALANINE AMINOTRANSFERASE 26 Units/L (12-78); ALBUMIN 1.5 g/dL (3.4-5.0); ALKALINE PHOSPHATASE 275 Units/L (46-116); ASPARTATE AMINO TRANSFERASE 17 Units/L (15-37); BLOOD UREA NITROGEN 8 mg/dL (7-18); CALCIUM 7.7 mg/dL (8.5-10.1); CARBON DIOXIDE 19.1 mmol/L (21-32); CHLORIDE 111 mmol/L (98-107); COR CA(FOR HYPOALB) 9.7 mg/dL (8.5-10.1); COR NA(FOR HYPERGLY) 144 mmol/L (136-145); CREATININE 0.78 mg/dL (0.55-1.02); SODIUM 142 mmol/L (136-145); TOTAL PROTEIN 6.1 g/dL (6.4-8.2); eGFR NON BLACK RACES > 60 (>60)
[2018-05-01 07:13] LABS: BAND NEUTROPHILS % 16 % (0-10); PLATELET MORPHOLOGY COMMENT NORMAL (NORMAL)
[2018-05-01] MEDS: VANCOMYCIN HCL 1 GM VIAL 1 G in NS 250 ML IV 250 ML IV SCH ×2 (09:29→21:01)
[2018-05-01] MEDS: ULTRAM PO SCH ×2 (09:30→21:00)
[2018-05-01] MEDS: COZAAR PO SCH (09:30)
[2018-05-01] MEDS: CYMBALTA PO SCH ×2 (09:30→21:00)
[2018-05-01] MEDS: DITROPAN TAB 5 MG PO SCH (09:30)
[2018-05-01] MEDS: NORCO 5/325 MG TAB PO PRN (10:13)
--- NOTE | 2018-05-01 10:13 | DR.PROGNOT ---
Hospital Progress Notes - Progress Note for Day of: Progress Note Date: 05/01/18 - Chief Complaint Chief Complaint: Po debridement of large Rt buttock abscess . feeling better with less pain and less drainage . BS 170. culture Gm+ cocci sensitive to Vancomycin and Levaquin - Past Medical Family Social History Past Med/Fam/Surg Hx: No changes since H&P Allergies: Allergies No Known Drug Allergies Allergy (Verified 04/26/18 11:35) - Review Of Systems ROS: No change since H&P - Vital Signs Vital Signs: Temperature 98.6 F Pulse Rate [Right Brachial] 91 Pulse Rate [Left Brachial] 87 Pulse Rate 88 Respiratory Rate 22 Blood Pressure [Right Arm] 160/69 Blood Pressure [Left Arm] 131/91 Blood Pressure 127/57 O2 Sat by Pulse Oximetry 97 - Physical Exam Oriented: Normal Eyes: Normal Ear: Normal Nose: Normal Throat: Normal Respiratory: Diminished Cardiovascular: Normal : Normal GI:Auscultation: Normal GI:Palpation: Normal GI: Tenderness: Normal Skin: Decreased Turgur, Red, Tender, Hot, Wound (large open wound 15 x 10 cm with other open area 3 x 3 cm and tunelling ..no further necrosis or abscess ) Musculoskeletal: Back:Lumbar Psychiatric: Anxiety Mood Description: Calm Affect: Anxious Speech Pattern: Clear, Appropriate - Laboratory and Diagnostics Result Diagrams: 05/01/18 05:15 05/01/18 05:15 Labs: 04/29/18 10:02 Buttock Gram Stain - Final 04/29/18 10:02 Buttock Wound Culture - Preliminary Enterococcus Faecalis 04/26/18 12:05 Buttock Gram Stain - Final 04/26/18 12:05 Buttock Wound Culture - Final 04/27/18 13:15 Blood Blood Culture - Preliminary 04/27/18 13:06 Blood Blood Culture - Preliminary Laboratory WBC 11.9 X10^3/uL (3.6-10.0) H 05/01/18 05:15 RBC 3.43 X10^6/uL (3.5-5.4) L 05/01/18 05:15 Hgb 10.4 g/dL (12.0-16.0) L 05/01/18 05:15 Hct 31.5 % (36.0-47.0) L 05/01/18 05:15 MCV 91.9 fL (80.0-100.0) 05/01/18 05:15 MCH 30.5 pg (27.0-34.0) 05/01/18 05:15 MCHC 33.1 g/dL (33.0-35.0) 05/01/18 05:15 RDW 14.5 % (11.6-16.5) 05/01/18 05:15 Plt Count 141 X10^3/uL (150.0-450.0) L 05/01/18 05:15 Plt Count Comment Adequate (ADEQUATE) 05/01/18 05:15 MPV 7.4 fL (7.4-11.0) 05/01/18 05:15 Neut % (Auto) 81.1 % (42.0-75.0) H 05/01/18 05:15 Lymph % (Auto) 12.4 % (21.0-51.0) L 05/01/18 05:15 [place] % (Auto) 5.0 % (0.0-13.0) 05/01/18 05:15 Eos % (Auto) 1.1 % (0.9-2.9) 05/01/18 05:15 Baso % (Auto) 0.4 % (0.2-1.0) 05/01/18 05:15 Neut # (Auto) 9.6 x10^3/uL (2.2-4.8) H 05/01/18 05:15 Lymph # (Auto) 1.5 X10^3/uL (1.3-2.9) 05/01/18 05:15 [place] # (Auto) 0.6 x10^3/uL (0.3-0.8) 05/01/18 05:15 Eos # (Auto) 0.1 x10^3/uL (0.0-0.2) 05/01/18 05:15 Baso # (Auto) 0.0 X10^3/uL (0.0-0.1) 05/01/18 05:15 Absolute Nucleated RBC 0.1 /100WBC 05/01/18 05:15 Total Counted 100 05/01/18 05:15 Neutrophils % (Manual) 69 % (39-76) 05/01/18 05:15 Band Neutrophils % 16 % (0-10) H 05/01/18 05:15 Lymphocytes % (Manual) 9 % (13-43) L 05/01/18 05:15 Monocytes % (Manual) 4 % (4-9) 05/01/18 05:15 Eosinophils % (Manual) 2 % (0-6) 05/01/18 05:15 Plt Morphology Comment Normal (NORMAL) 05/01/18 05:15 RBC Morphology Normal (NORMAL) 05/01/18 05:15 Sodium 142 mmol/L (136-145) 05/01/18 05:15 Corrected Sodium 144 mmol/L (136-145) 05/01/18 05:15 Potassium 3.8 mmol/L (3.5-5.1) 05/01/18 05:15 Chloride 111 mmol/L (98-107) H 05/01/18 05:15 Carbon Dioxide 19.1 mmol/L (21-32) L 05/01/18 05:15 BUN 8 mg/dL (7-18) 05/01/18 05:15 Creatinine 0.78 mg/dL (0.55-1.02) 05/01/18 05:15 Est GFR (MDRD) Af Amer > 60 (>60) 05/01/18 05:15 Est GFR (MDRD) Non-Af > 60 (>60) 05/01/18 05:15 Glucose 183 mg/dL (65-99) H 05/01/18 05:15 POC Glucose (mg/dL) 170 mg/dL (65-99) H 05/01/18 05:26 Calcium 7.7 mg/dL (8.5-10.1) L 05/01/18 05:15 Corrected Calcium 9.7 mg/dL (8.5-10.1) 05/01/18 05:15 Magnesium 2.2 mg/dL (1.7-2.9) 04/27/18 04:46 Total Bilirubin 0.20 mg/dL (0.2-1.0) 05/01/18 05:15 AST 17 Units/L (15-37) 05/01/18 05:15 ALT 26 Units/L (12-78) 05/01/18 05:15 Alkaline Phosphatase 275 Units/L (46-116) H 05/01/18 05:15 C-Reactive Protein 3.20 mg/L (0-3.0) H 04/26/18 12:20 Total Protein 6.1 g/dL (6.4-8.2) L 05/01/18 05:15 Albumin 1.5 g/dL (3.4-5.0) L 05/01/18 05:15 Globulin 4.6 g/dL (2.5-4.5) H 05/01/18 05:15 Albumin/Globulin Ratio 0.3 Ratio (1.1-2.1) L 05/01/18 05:15 Specimen Type Catherized urine 04/29/18 11:30 Urine Color Yellow (YELLOW) 04/29/18 11:30 Urine Appearance Hazy (CLEAR) 04/29/18 11:30 Urine pH 5.0 (5.0 - 8.0) 04/29/18 11:30 Ur Specific [place] 1.015 (1.000-1.030) 04/29/18 11:30 Urine Protein 1+ (NEGATIVE) 04/29/18 11:30 Urine Glucose (UA) Negative (NEGATIVE) 04/29/18 11:30 Urine Ketones Negative (NEGATIVE) 04/29/18 11:30 Urine Occult Blood 3+ (NEGATIVE) 04/29/18 11:30 Urine Nitrite Negative (NEGATIVE) 04/29/18 11:30 Urine Bilirubin Negative (NEGATIVE) 04/29/18 11:30 Urine Urobilinogen Normal (NORMAL) 04/29/18 11:30 Ur Leukocyte Esterase Negative (NEGATIVE) 04/29/18 11:30 Urine RBC 0-2 /HPF (NONE SEEN) 04/29/18 11:30 Urine WBC 0-2 /HPF (NONE SEEN) 04/29/18 11:30 Ur Squamous Epith Cells Rare /HPF (NEGATIVE) 04/29/18 11:30 Amorphous Sediment 1+ /HPF (NEGATIVE) 04/29/18 11:30 Urine Bacteria Trace /HPF (NEGATIVE) 04/29/18 11:30 Hyaline Casts Many /LPF (NEGATIVE) 04/27/18 02:00 Ur Culture Indicated? No/not indicated 04/29/18 11:30 Vancomycin Trough 7.9 ug/mL (15-20) L 04/30/18 13:50 Tissue Pathology To follow 04/29/18 10:05 - Assessment and Plan 1: large Rt buttock abscess with necrosis . on IV ATB . 2: DM ,controlled 3: Morbid obesity . same local care , IV ATB and DVT prophylaxis - Problem Patient Problems: Patient Problems Mild dehydration (Acute) E86.0 Cellulitis and abscess of buttock (Acute) L02.31, L03.317 Acute hyponatremia (Acute) E87.1 Metabolic acidosis (Acute) E87.2 Diabetes (Acute) E11.9 Necrotic eschar (Resolved) L98.8
[2018-05-01] MEDS: LEVAQUIN PREMIX IV 750 MG 750 MG/150 ML BAG IV SCH (11:00)
[2018-05-01] MEDS: LOVENOX INJ 40 MG SYR SC SCH (11:51)
--- NOTE | 2018-05-01 17:48 | PCM.PROG ---
Progress Note - Progress Note for Day of Date of Exam: 05/01/18 - Subjective Subjective: 63 WF ER ADMISSION WITH CELLULITIS AND ABSCESS TO RIGHT BUTTOCK, POSITIVE FOR STAPH. PT CURRENTLY ON IV ATBX LEVAQUIN AND VANCOMYCIN, CULTURES POSITIVE FOR COAG NEG STAPH AND ENTEROCCUS. S/P I&D AND DEBRIDEMENT FOR DR GELLER. PT REPORTS SLIGHT IMPROVEMENT IN PAIN THIS AM. TISSUE TO RIGHT BUTTOCK PINK WITH MILD LOCALIZED REDNESS, IMPROVING ERYTHEMA TO SURROUNDING TISSUE, PACKING INTACT - Past Medical Family Social History Past Med/Fam/Surg Hx: No changes since H&P Allergies: Allergies No Known Drug Allergies Allergy (Verified 04/26/18 11:35) - Review of Systems ROS: No change since H&P - Vital Signs and I&O's Vital Signs: Temperature 98.7 F Pulse Rate [Right Brachial] 99 Pulse Rate [Left Brachial] 87 Pulse Rate 88 Respiratory Rate 20 Blood Pressure [Right Arm] 142/85 Blood Pressure [Left Arm] 131/91 Blood Pressure 127/57 O2 Sat by Pulse Oximetry 97 Intake and Output: Intake & Output 04/29/18 04/30/18 05/01/18 05/02/18 11:59 11:59 11:59 11:59 Intake Total 2081 / 2081 203 / 2034 2090 / 2089 360 / 360 Output Total 1500 / 1500 1475 / 1475 850 / 850 200 / 200 Balance 582 / 582 560 / 560 1240 / 1240 160 / 160 - Physical Exam Oriented: Normal Eyes: Normal Ear: Normal Nose: Normal Throat: Normal Respiratory: Diminished Cardiovascular: Normal : Normal Auscultation: Bowel Sounds: Normal Tenderness: Normal Skin: Decreased Turgur, Red, Tender, Hot, Wound (large open wound 15 x 10 cm with other open area 3 x 3 cm and tunelling ..no further necrosis or abscess ) Musculoskeletal: Back:Lumbar Psychiatric: Anxiety Mood Description: Calm Affect: Anxious Speech Pattern: Clear, Appropriate - Laboratory and Diagnostics Result Diagrams: 05/01/18 05:15 05/01/18 05:15 Labs: 04/29/18 10:02 Buttock Gram Stain - Final 04/29/18 10:02 Buttock Wound Culture - Preliminary Enterococcus Faecalis 04/26/18 12:05 Buttock Gram Stain - Final 04/26/18 12:05 Buttock Wound Culture - Final 04/27/18 13:15 Blood Blood Culture - Preliminary 04/27/18 13:06 Blood Blood Culture - Preliminary Laboratory WBC 11.9 X10^3/uL (3.6-10.0) H 05/01/18 05:15 RBC 3.43 X10^6/uL (3.5-5.4) L 05/01/18 05:15 Hgb 10.4 g/dL (12.0-16.0) L 05/01/18 05:15 Hct 31.5 % (36.0-47.0) L 05/01/18 05:15 MCV 91.9 fL (80.0-100.0) 05/01/18 05:15 MCH 30.5 pg (27.0-34.0) 05/01/18 05:15 MCHC 33.1 g/dL (33.0-35.0) 05/01/18 05:15 RDW 14.5 % (11.6-16.5) 05/01/18 05:15 Plt Count 141 X10^3/uL (150.0-450.0) L 05/01/18 05:15 Plt Count Comment Adequate (ADEQUATE) 05/01/18 05:15 MPV 7.4 fL (7.4-11.0) 05/01/18 05:15 Neut % (Auto) 81.1 % (42.0-75.0) H 05/01/18 05:15 Lymph % (Auto) 12.4 % (21.0-51.0) L 05/01/18 05:15 [place] % (Auto) 5.0 % (0.0-13.0) 05/01/18 05:15 Eos % (Auto) 1.1 % (0.9-2.9) 05/01/18 05:15 Baso % (Auto) 0.4 % (0.2-1.0) 05/01/18 05:15 Neut # (Auto) 9.6 x10^3/uL (2.2-4.8) H 05/01/18 05:15 Lymph # (Auto) 1.5 X10^3/uL (1.3-2.9) 05/01/18 05:15 [place] # (Auto) 0.6 x10^3/uL (0.3-0.8) 05/01/18 05:15 Eos # (Auto) 0.1 x10^3/uL (0.0-0.2) 05/01/18 05:15 Baso # (Auto) 0.0 X10^3/uL (0.0-0.1) 05/01/18 05:15 Absolute Nucleated RBC 0.1 /100WBC 05/01/18 05:15 Total Counted 100 05/01/18 05:15 Neutrophils % (Manual) 69 % (39-76) 05/01/18 05:15 Band Neutrophils % 16 % (0-10) H 05/01/18 05:15 Lymphocytes % (Manual) 9 % (13-43) L 05/01/18 05:15 Monocytes % (Manual) 4 % (4-9) 05/01/18 05:15 Eosinophils % (Manual) 2 % (0-6) 05/01/18 05:15 Plt Morphology Comment Normal (NORMAL) 05/01/18 05:15 RBC Morphology Normal (NORMAL) 05/01/18 05:15 Sodium 142 mmol/L (136-145) 05/01/18 05:15 Corrected Sodium 144 mmol/L (136-145) 05/01/18 05:15 Potassium 3.8 mmol/L (3.5-5.1) 05/01/18 05:15 Chloride 111 mmol/L (98-107) H 05/01/18 05:15 Carbon Dioxide 19.1 mmol/L (21-32) L 05/01/18 05:15 BUN 8 mg/dL (7-18) 05/01/18 05:15 Creatinine 0.78 mg/dL (0.55-1.02) 05/01/18 05:15 Est GFR (MDRD) Af Amer > 60 (>60) 05/01/18 05:15 Est GFR (MDRD) Non-Af > 60 (>60) 05/01/18 05:15 Glucose 183 mg/dL (65-99) H 05/01/18 05:15 POC Glucose (mg/dL) 161 mg/dL (65-99) H 05/01/18 17:05 Calcium 7.7 mg/dL (8.5-10.1) L 05/01/18 05:15 Corrected Calcium 9.7 mg/dL (8.5-10.1) 05/01/18 05:15 Magnesium 2.2 mg/dL (1.7-2.9) 04/27/18 04:46 Total Bilirubin 0.20 mg/dL (0.2-1.0) 05/01/18 05:15 AST 17 Units/L (15-37) 05/01/18 05:15 ALT 26 Units/L (12-78) 05/01/18 05:15 Alkaline Phosphatase 275 Units/L (46-116) H 05/01/18 05:15 C-Reactive Protein 3.20 mg/L (0-3.0) H 04/26/18 12:20 Total Protein 6.1 g/dL (6.4-8.2) L 05/01/18 05:15 Albumin 1.5 g/dL (3.4-5.0) L 05/01/18 05:15 Globulin 4.6 g/dL (2.5-4.5) H 05/01/18 05:15 Albumin/Globulin Ratio 0.3 Ratio (1.1-2.1) L 05/01/18 05:15 Specimen Type Catherized urine 04/29/18 11:30 Urine Color Yellow (YELLOW) 04/29/18 11:30 Urine Appearance Hazy (CLEAR) 04/29/18 11:30 Urine pH 5.0 (5.0 - 8.0) 04/29/18 11:30 Ur Specific [place] 1.015 (1.000-1.030) 04/29/18 11:30 Urine Protein 1+ (NEGATIVE) 04/29/18 11:30 Urine Glucose (UA) Negative (NEGATIVE) 04/29/18 11:30 Urine Ketones Negative (NEGATIVE) 04/29/18 11:30 Urine Occult Blood 3+ (NEGATIVE) 04/29/18 11:30 Urine Nitrite Negative (NEGATIVE) 04/29/18 11:30 Urine Bilirubin Negative (NEGATIVE) 04/29/18 11:30 Urine Urobilinogen Normal (NORMAL) 04/29/18 11:30 Ur Leukocyte Esterase Negative (NEGATIVE) 04/29/18 11:30 Urine RBC 0-2 /HPF (NONE SEEN) 04/29/18 11:30 Urine WBC 0-2 /HPF (NONE SEEN) 04/29/18 11:30 Ur Squamous Epith Cells Rare /HPF (NEGATIVE) 04/29/18 11:30 Amorphous Sediment 1+ /HPF (NEGATIVE) 04/29/18 11:30 Urine Bacteria Trace /HPF (NEGATIVE) 04/29/18 11:30 Hyaline Casts Many /LPF (NEGATIVE) 04/27/18 02:00 Ur Culture Indicated? No/not indicated 04/29/18 11:30 Vancomycin Trough 7.9 ug/mL (15-20) L 04/30/18 13:50 Tissue Pathology To follow 04/29/18 10:05 - Plan (1) Cellulitis and abscess of buttock Status: Acute Plan: AM LABS. WOUND CULTURE, IV ATBX, DR GELLER CONSULTING. BP MONITORING, WOUND CARE. 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
[2018-05-01] MEDS: SNACK - Diabetic Appropriate PO SCH (20:21)
[2018-05-01] MEDS: MILK OF MAGNESIA PO SCH (21:00)
[2018-05-01] MEDS: COLACE CAP 100 MG PO SCH (21:00)
[2018-05-02] MEDS: NS 1000 ML 1,000 ML IV SCH (04:13)
[2018-05-02 04:54] LABS: ALANINE AMINOTRANSFERASE 21 Units/L (12-78); ALBUMIN 1.5 g/dL (3.4-5.0); ALKALINE PHOSPHATASE 216 Units/L (46-116); ASPARTATE AMINO TRANSFERASE 13 Units/L (15-37); BLOOD UREA NITROGEN 5 mg/dL (7-18); CALCIUM 7.6 mg/dL (8.5-10.1); CARBON DIOXIDE 20.8 mmol/L (21-32); CHLORIDE 112 mmol/L (98-107); COR CA(FOR HYPOALB) 9.6 mg/dL (8.5-10.1); COR NA(FOR HYPERGLY) 144 mmol/L (136-145); CREATININE 0.76 mg/dL (0.55-1.02); SODIUM 143 mmol/L (136-145); eGFR NON BLACK RACES > 60 (>60)
[2018-05-02 05:22] LABS: BASOPHILS # (AUTO) 0.1 X10^3/uL (0.0-0.1); BASOPHILS % (AUTO) 0.6 % (0.2-1.0); EOSINOPHILS # (AUTO) 0.2 x10^3/uL (0.0-0.2); EOSINOPHILS % (AUTO) 1.7 % (0.9-2.9); HEMATOCRIT 29.5 % (36.0-47.0); HEMOGLOBIN 9.9 g/dL (12.0-16.0); LYMPHOCYTES # (AUTO) 1.5 X10^3/uL (1.3-2.9); LYMPHOCYTES % (AUTO) 13.4 % (21.0-51.0); MEAN CORPUSCULAR HEMOGLOBIN 30.4 pg (27.0-34.0); MEAN CORPUSCULAR HGB CONC 33.5 g/dL (33.0-35.0); MEAN CORPUSCULAR VOLUME 90.8 fL (80.0-100.0); MEAN PLATELET VOLUME 7.7 fL (7.4-11.0); MONOCYTES # (AUTO) 0.5 x10^3/uL (0.3-0.8); MONOCYTES % (AUTO) 4.7 % (0.0-13.0); NEUTROPHILS # (AUTO) 8.8 x10^3/uL (2.2-4.8); NEUTROPHILS % (AUTO) 79.6 % (42.0-75.0); PLATELET COUNT 101 X10^3/uL (150.0-450.0); RED BLOOD COUNT 3.25 X10^6/uL (3.5-5.4); RED CELL DISTRIBUTION WIDTH 14.4 % (11.6-16.5)
[2018-05-02] MEDS: NORCO 5/325 MG TAB PO PRN ×2 (05:23→21:04)
[2018-05-02 05:34] LABS: BAND NEUTROPHILS % 6 % (0-10)
[2018-05-02 05:35] LABS: PLATELET MORPHOLOGY COMMENT NORMAL (NORMAL)
[2018-05-02 08:19] LABS: CREATININE 0.75 mg/dL (0.55-1.02); VANCOMYCIN,TROUGH 15.7 ug/mL (15-20)
[2018-05-02] MEDS ORDERED: PHARMACY COMMENT IV NR (08:30)
[2018-05-02] MEDS: COZAAR PO SCH (10:01)
[2018-05-02] MEDS: LOVENOX INJ 40 MG SYR SC SCH (10:01)
[2018-05-02] MEDS: LEVAQUIN PREMIX IV 750 MG 750 MG/150 ML BAG IV SCH (10:01)
[2018-05-02] MEDS: ULTRAM PO SCH ×2 (10:01→21:04)
[2018-05-02] MEDS: CYMBALTA PO SCH ×2 (10:01→21:00)
[2018-05-02] MEDS: DITROPAN TAB 5 MG PO SCH (10:01)
[2018-05-02] MEDS: VANCOMYCIN HCL 1 GM VIAL 1 G in NS 250 ML IV 250 ML IV SCH ×2 (10:02→21:03)
--- NOTE | 2018-05-02 11:02 | DR.PROGNOT ---
Hospital Progress Notes - Progress Note for Day of: Progress Note Date: 05/02/18 - Chief Complaint Chief Complaint: Po debridement of large Rt buttock abscess . feeling better with less pain and less drainage . BS 138. Vanco level 15.7 .Albumin 1.5. culture Gm+ cocci sensitive to Vancomycin and Levaquin . - Past Medical Family Social History Past Med/Fam/Surg Hx: No changes since H&P Allergies: Allergies No Known Drug Allergies Allergy (Verified 04/26/18 11:35) - Review Of Systems ROS: No change since H&P - Vital Signs Vital Signs: Temperature 98 F Pulse Rate [Right Brachial] 101 Pulse Rate [Left Brachial] 87 Pulse Rate 88 Respiratory Rate 18 Blood Pressure [Right Arm] 142/71 Blood Pressure [Left Arm] 131/91 Blood Pressure 127/57 O2 Sat by Pulse Oximetry 98 - Physical Exam Oriented: Normal Eyes: Normal Ear: Normal Nose: Normal Throat: Normal Respiratory: Diminished Cardiovascular: Normal : Normal GI:Auscultation: Normal GI:Palpation: Normal GI: Tenderness: Normal Skin: Decreased Turgur, Red, Tender, Hot, Wound (large open wound 15 x 10 cm with other open area 3 x 3 cm and tunelling ..no further necrosis or abscess ) Musculoskeletal: Back:Lumbar Psychiatric: Anxiety Mood Description: Calm Affect: Anxious Speech Pattern: Clear, Appropriate - Laboratory and Diagnostics Result Diagrams: 05/02/18 04:25 05/02/18 07:52 Labs: 04/29/18 10:02 Buttock Gram Stain - Final 04/29/18 10:02 Buttock Wound Culture - Preliminary Enterococcus Faecalis 04/26/18 12:05 Buttock Gram Stain - Final 04/26/18 12:05 Buttock Wound Culture - Final 04/27/18 13:15 Blood Blood Culture - Preliminary 04/27/18 13:06 Blood Blood Culture - Preliminary Laboratory WBC 11.0 X10^3/uL (3.6-10.0) H 05/02/18 04:25 RBC 3.25 X10^6/uL (3.5-5.4) L 05/02/18 04:25 Hgb 9.9 g/dL (12.0-16.0) L 05/02/18 04:25 Hct 29.5 % (36.0-47.0) L 05/02/18 04:25 MCV 90.8 fL (80.0-100.0) 05/02/18 04:25 MCH 30.4 pg (27.0-34.0) 05/02/18 04:25 MCHC 33.5 g/dL (33.0-35.0) 05/02/18 04:25 RDW 14.4 % (11.6-16.5) 05/02/18 04:25 Plt Count 101 X10^3/uL (150.0-450.0) L 05/02/18 04:25 Plt Count Comment Decreased (ADEQUATE) A 05/02/18 04:25 MPV 7.7 fL (7.4-11.0) 05/02/18 04:25 Neut % (Auto) 79.6 % (42.0-75.0) H 05/02/18 04:25 Lymph % (Auto) 13.4 % (21.0-51.0) L 05/02/18 04:25 [place] % (Auto) 4.7 % (0.0-13.0) 05/02/18 04:25 Eos % (Auto) 1.7 % (0.9-2.9) 05/02/18 04:25 Baso % (Auto) 0.6 % (0.2-1.0) 05/02/18 04:25 Neut # (Auto) 8.8 x10^3/uL (2.2-4.8) H 05/02/18 04:25 Lymph # (Auto) 1.5 X10^3/uL (1.3-2.9) 05/02/18 04:25 [place] # (Auto) 0.5 x10^3/uL (0.3-0.8) 05/02/18 04:25 Eos # (Auto) 0.2 x10^3/uL (0.0-0.2) 05/02/18 04:25 Baso # (Auto) 0.1 X10^3/uL (0.0-0.1) 05/02/18 04:25 Absolute Nucleated RBC 0.1 /100WBC 05/02/18 04:25 Total Counted 100 05/02/18 04:25 Neutrophils % (Manual) 70 % (39-76) 05/02/18 04:25 Band Neutrophils % 6 % (0-10) 05/02/18 04:25 Lymphocytes % (Manual) 16 % (13-43) 05/02/18 04:25 Monocytes % (Manual) 4 % (4-9) 05/02/18 04:25 Eosinophils % (Manual) 4 % (0-6) 05/02/18 04:25 Plt Morphology Comment Normal (NORMAL) 05/02/18 04:25 RBC Morphology Normal (NORMAL) 05/02/18 04:25 Sodium 143 mmol/L (136-145) 05/02/18 04:25 Corrected Sodium 144 mmol/L (136-145) 05/02/18 04:25 Potassium 3.7 mmol/L (3.5-5.1) 05/02/18 04:25 Chloride 112 mmol/L (98-107) H 05/02/18 04:25 Carbon Dioxide 20.8 mmol/L (21-32) L 05/02/18 04:25 BUN 5 mg/dL (7-18) L 05/02/18 04:25 Creatinine 0.75 mg/dL (0.55-1.02) 05/02/18 07:52 Est GFR (MDRD) Af Amer > 60 (>60) 05/02/18 04:25 Est GFR (MDRD) Non-Af > 60 (>60) 05/02/18 04:25 Glucose 149 mg/dL (65-99) H 05/02/18 04:25 POC Glucose (mg/dL) 138 mg/dL (65-99) H 05/02/18 05:26 Calcium 7.6 mg/dL (8.5-10.1) L 05/02/18 04:25 Corrected Calcium 9.6 mg/dL (8.5-10.1) 05/02/18 04:25 Magnesium 2.2 mg/dL (1.7-2.9) 04/27/18 04:46 Total Bilirubin 0.20 mg/dL (0.2-1.0) 05/02/18 04:25 AST 13 Units/L (15-37) L 05/02/18 04:25 ALT 21 Units/L (12-78) 05/02/18 04:25 Alkaline Phosphatase 216 Units/L (46-116) H 05/02/18 04:25 C-Reactive Protein 3.20 mg/L (0-3.0) H 04/26/18 12:20 Total Protein 6.0 g/dL (6.4-8.2) L 05/02/18 04:25 Albumin 1.5 g/dL (3.4-5.0) L 05/02/18 04:25 Globulin 4.5 g/dL (2.5-4.5) 05/02/18 04:25 Albumin/Globulin Ratio 0.3 Ratio (1.1-2.1) L 05/02/18 04:25 Specimen Type Catherized urine 04/29/18 11:30 Urine Color Yellow (YELLOW) 04/29/18 11:30 Urine Appearance Hazy (CLEAR) 04/29/18 11:30 Urine pH 5.0 (5.0 - 8.0) 04/29/18 11:30 Ur Specific [place] 1.015 (1.000-1.030) 04/29/18 11:30 Urine Protein 1+ (NEGATIVE) 04/29/18 11:30 Urine Glucose (UA) Negative (NEGATIVE) 04/29/18 11:30 Urine Ketones Negative (NEGATIVE) 04/29/18 11:30 Urine Occult Blood 3+ (NEGATIVE) 04/29/18 11:30 Urine Nitrite Negative (NEGATIVE) 04/29/18 11:30 Urine Bilirubin Negative (NEGATIVE) 04/29/18 11:30 Urine Urobilinogen Normal (NORMAL) 04/29/18 11:30 Ur Leukocyte Esterase Negative (NEGATIVE) 04/29/18 11:30 Urine RBC 0-2 /HPF (NONE SEEN) 04/29/18 11:30 Urine WBC 0-2 /HPF (NONE SEEN) 04/29/18 11:30 Ur Squamous Epith Cells Rare /HPF (NEGATIVE) 04/29/18 11:30 Amorphous Sediment 1+ /HPF (NEGATIVE) 04/29/18 11:30 Urine Bacteria Trace /HPF (NEGATIVE) 04/29/18 11:30 Hyaline Casts Many /LPF (NEGATIVE) 04/27/18 02:00 Ur Culture Indicated? No/not indicated 04/29/18 11:30 Vancomycin Trough 15.7 ug/mL (15-20) 05/02/18 07:52 Tissue Pathology To follow 04/29/18 10:05 - Assessment and Plan 1: large Rt buttock wound .s/p extensive debridement. on IV ATB . 2: DM ,controlled 3: Morbid obesity . same local care , IV ATB and DVT prophylaxis 4: hypoalbuminemia , anemia . - Problem Patient Problems: Patient Problems Mild dehydration (Acute) E86.0 Cellulitis and abscess of buttock (Acute) L02.31, L03.317 Acute hyponatremia (Acute) E87.1 Metabolic acidosis (Acute) E87.2 Diabetes (Acute) E11.9 Necrotic eschar (Resolved) L98.8
--- NOTE | 2018-05-02 13:54 | PCM.PROG ---
Progress Note - Progress Note for Day of Date of Exam: 05/02/18 - Subjective Subjective: 63 WF ER ADMISSION WITH CELLULITIS AND ABSCESS TO RIGHT BUTTOCK, POSITIVE FOR STAPH. PT CURRENTLY ON IV ATBX LEVAQUIN AND VANCOMYCIN, CULTURES POSITIVE FOR COAG NEG STAPH AND ENTEROCCUS. S/P I&D AND DEBRIDEMENT FOR DR GELLER. PT REPORTS SLIGHT IMPROVEMENT IN PAIN THIS AM. TISSUE TO RIGHT BUTTOCK PINK WITH MILD LOCALIZED REDNESS, IMPROVING ERYTHEMA TO SURROUNDING TISSUE, PACKING INTACT. CONTINUE WITH MILD MALODOROUS D/C - Past Medical Family Social History Past Med/Fam/Surg Hx: No changes since H&P Allergies: Allergies No Known Drug Allergies Allergy (Verified 04/26/18 11:35) - Review of Systems ROS: No change since H&P - Vital Signs and I&O's Vital Signs: Temperature 98.3 F Pulse Rate [Right Brachial] 108 Pulse Rate [Left Brachial] 87 Pulse Rate 88 Respiratory Rate 20 Blood Pressure [Right Arm] 179/77 Blood Pressure [Left Arm] 131/91 Blood Pressure 127/57 O2 Sat by Pulse Oximetry 94 Intake and Output: Intake & Output 04/30/18 05/01/18 05/02/18 05/03/18 11:59 11:59 11:59 11:59 Intake Total 2035 / 2035 2090 / 2090 1350 / 1350 Output Total 1475 / 1475 850 / 850 1050 / 1050 Balance 560 / 560 1240 / 1240 300 / 300 - Physical Exam Oriented: Normal Eyes: Normal Ear: Normal Nose: Normal Throat: Normal Respiratory: Diminished Cardiovascular: Normal : Normal Auscultation: Bowel Sounds: Normal Tenderness: Normal Skin: Decreased Turgur, Red, Tender, Hot, Wound (large open wound 15 x 10 cm with other open area 3 x 3 cm and tunelling ..no further necrosis or abscess ) Musculoskeletal: Back:Lumbar Psychiatric: Anxiety Mood Description: Calm Affect: Anxious Speech Pattern: Clear, Appropriate - Laboratory and Diagnostics Result Diagrams: 05/02/18 04:25 05/02/18 07:52 Labs: 04/27/18 13:15 Blood Blood Culture - Final 04/27/18 13:06 Blood Blood Culture - Final 04/29/18 10:02 Buttock Gram Stain - Final 04/29/18 10:02 Buttock Wound Culture - Preliminary Enterococcus Faecalis 04/26/18 12:05 Buttock Gram Stain - Final 04/26/18 12:05 Buttock Wound Culture - Final Laboratory WBC 11.0 X10^3/uL (3.6-10.0) H 05/02/18 04:25 RBC 3.25 X10^6/uL (3.5-5.4) L 05/02/18 04:25 Hgb 9.9 g/dL (12.0-16.0) L 05/02/18 04:25 Hct 29.5 % (36.0-47.0) L 05/02/18 04:25 MCV 90.8 fL (80.0-100.0) 05/02/18 04:25 MCH 30.4 pg (27.0-34.0) 05/02/18 04:25 MCHC 33.5 g/dL (33.0-35.0) 05/02/18 04:25 RDW 14.4 % (11.6-16.5) 05/02/18 04:25 Plt Count 101 X10^3/uL (150.0-450.0) L 05/02/18 04:25 Plt Count Comment Decreased (ADEQUATE) A 05/02/18 04:25 MPV 7.7 fL (7.4-11.0) 05/02/18 04:25 Neut % (Auto) 79.6 % (42.0-75.0) H 05/02/18 04:25 Lymph % (Auto) 13.4 % (21.0-51.0) L 05/02/18 04:25 [place] % (Auto) 4.7 % (0.0-13.0) 05/02/18 04:25 Eos % (Auto) 1.7 % (0.9-2.9) 05/02/18 04:25 Baso % (Auto) 0.6 % (0.2-1.0) 05/02/18 04:25 Neut # (Auto) 8.8 x10^3/uL (2.2-4.8) H 05/02/18 04:25 Lymph # (Auto) 1.5 X10^3/uL (1.3-2.9) 05/02/18 04:25 [place] # (Auto) 0.5 x10^3/uL (0.3-0.8) 05/02/18 04:25 Eos # (Auto) 0.2 x10^3/uL (0.0-0.2) 05/02/18 04:25 Baso # (Auto) 0.1 X10^3/uL (0.0-0.1) 05/02/18 04:25 Absolute Nucleated RBC 0.1 /100WBC 05/02/18 04:25 Total Counted 100 05/02/18 04:25 Neutrophils % (Manual) 70 % (39-76) 05/02/18 04:25 Band Neutrophils % 6 % (0-10) 05/02/18 04:25 Lymphocytes % (Manual) 16 % (13-43) 05/02/18 04:25 Monocytes % (Manual) 4 % (4-9) 05/02/18 04:25 Eosinophils % (Manual) 4 % (0-6) 05/02/18 04:25 Plt Morphology Comment Normal (NORMAL) 05/02/18 04:25 RBC Morphology Normal (NORMAL) 05/02/18 04:25 Sodium 143 mmol/L (136-145) 05/02/18 04:25 Corrected Sodium 144 mmol/L (136-145) 05/02/18 04:25 Potassium 3.7 mmol/L (3.5-5.1) 05/02/18 04:25 Chloride 112 mmol/L (98-107) H 05/02/18 04:25 Carbon Dioxide 20.8 mmol/L (21-32) L 05/02/18 04:25 BUN 5 mg/dL (7-18) L 05/02/18 04:25 Creatinine 0.75 mg/dL (0.55-1.02) 05/02/18 07:52 Est GFR (MDRD) Af Amer > 60 (>60) 05/02/18 04:25 Est GFR (MDRD) Non-Af > 60 (>60) 05/02/18 04:25 Glucose 149 mg/dL (65-99) H 05/02/18 04:25 POC Glucose (mg/dL) 211 mg/dL (65-99) H 05/02/18 11:28 Calcium 7.6 mg/dL (8.5-10.1) L 05/02/18 04:25 Corrected Calcium 9.6 mg/dL (8.5-10.1) 05/02/18 04:25 Magnesium 2.2 mg/dL (1.7-2.9) 04/27/18 04:46 Total Bilirubin 0.20 mg/dL (0.2-1.0) 05/02/18 04:25 AST 13 Units/L (15-37) L 05/02/18 04:25 ALT 21 Units/L (12-78) 05/02/18 04:25 Alkaline Phosphatase 216 Units/L (46-116) H 05/02/18 04:25 C-Reactive Protein 3.20 mg/L (0-3.0) H 04/26/18 12:20 Total Protein 6.0 g/dL (6.4-8.2) L 05/02/18 04:25 Albumin 1.5 g/dL (3.4-5.0) L 05/02/18 04:25 Globulin 4.5 g/dL (2.5-4.5) 05/02/18 04:25 Albumin/Globulin Ratio 0.3 Ratio (1.1-2.1) L 05/02/18 04:25 Specimen Type Catherized urine 04/29/18 11:30 Urine Color Yellow (YELLOW) 04/29/18 11:30 Urine Appearance Hazy (CLEAR) 04/29/18 11:30 Urine pH 5.0 (5.0 - 8.0) 04/29/18 11:30 Ur Specific [place] 1.015 (1.000-1.030) 04/29/18 11:30 Urine Protein 1+ (NEGATIVE) 04/29/18 11:30 Urine Glucose (UA) Negative (NEGATIVE) 04/29/18 11:30 Urine Ketones Negative (NEGATIVE) 04/29/18 11:30 Urine Occult Blood 3+ (NEGATIVE) 04/29/18 11:30 Urine Nitrite Negative (NEGATIVE) 04/29/18 11:30 Urine Bilirubin Negative (NEGATIVE) 04/29/18 11:30 Urine Urobilinogen Normal (NORMAL) 04/29/18 11:30 Ur Leukocyte Esterase Negative (NEGATIVE) 04/29/18 11:30 Urine RBC 0-2 /HPF (NONE SEEN) 04/29/18 11:30 Urine WBC 0-2 /HPF (NONE SEEN) 04/29/18 11:30 Ur Squamous Epith Cells Rare /HPF (NEGATIVE) 04/29/18 11:30 Amorphous Sediment 1+ /HPF (NEGATIVE) 04/29/18 11:30 Urine Bacteria Trace /HPF (NEGATIVE) 04/29/18 11:30 Hyaline Casts Many /LPF (NEGATIVE) 04/27/18 02:00 Ur Culture Indicated? No/not indicated 04/29/18 11:30 Vancomycin Trough 15.7 ug/mL (15-20) 05/02/18 07:52 Tissue Pathology To follow 04/29/18 10:05 - Plan (1) Cellulitis and abscess of buttock Status: Acute Plan: AM LABS. WOUND CULTURE, IV ATBX, DR GELLER CONSULTING. BP MONITORING, WOUND CARE. BLOOD SUGAR CONTROL (2) Necrotic eschar Status: Resolved (3) Diabetes Status: Acute Qualifiers: Diabetes mellitus type: due to underlying condition Diabetes mellitus pain coordinator insulin use: with alf use Diabetes mellitus complication status: with hyperglycemia Qualified Code(s): E08.65 - Diabetes mellitus due to underlying condition with hyperglycemia; Z79.4 - group home (current) use of insulin
[2018-05-02] MEDS: ZINC SULFATE PO SCH (14:05)
[2018-05-02] MEDS: VITAMIN C PO SCH ×2 (14:05→21:05)
[2018-05-02] MEDS: HumuLIN R SC PRN ×2 (16:57→22:11)
[2018-05-02] MEDS: SNACK - Diabetic Appropriate PO SCH (21:00)
[2018-05-02] MEDS: DIFLUCAN PO SCH (21:00)
[2018-05-02] MEDS: COLACE CAP 100 MG PO SCH (21:04)
[2018-05-02] MEDS: MILK OF MAGNESIA PO SCH (22:12)
[2018-05-03] MEDS: NORCO 5/325 MG TAB PO PRN ×2 (01:41→23:32)
[2018-05-03] MEDS: MORPHINE SULFATE INJ 2 MG INJ IVP PRN ×2 (04:00→13:13)
[2018-05-03 06:19] LABS: BASOPHILS % (AUTO) 0.3 % (0.2-1.0); EOSINOPHILS # (AUTO) 0.2 x10^3/uL (0.0-0.2); HEMATOCRIT 28.2 % (36.0-47.0); HEMOGLOBIN 9.6 g/dL (12.0-16.0); LYMPHOCYTES # (AUTO) 1.4 X10^3/uL (1.3-2.9); LYMPHOCYTES % (AUTO) 11.4 % (21.0-51.0); MEAN CORPUSCULAR HEMOGLOBIN 30.7 pg (27.0-34.0); MEAN CORPUSCULAR HGB CONC 33.9 g/dL (33.0-35.0); MEAN CORPUSCULAR VOLUME 90.7 fL (80.0-100.0); MEAN PLATELET VOLUME 7.7 fL (7.4-11.0); MONOCYTES # (AUTO) 0.7 x10^3/uL (0.3-0.8); MONOCYTES % (AUTO) 5.3 % (0.0-13.0); NEUTROPHILS # (AUTO) 10.2 x10^3/uL (2.2-4.8); PLATELET COUNT 101 X10^3/uL (150.0-450.0); RED BLOOD COUNT 3.11 X10^6/uL (3.5-5.4); RED CELL DISTRIBUTION WIDTH 14.3 % (11.6-16.5); WHITE BLOOD COUNT 12.5 X10^3/uL (3.6-10.0)
[2018-05-03 06:36] LABS: ALANINE AMINOTRANSFERASE 19 Units/L (12-78); ALBUMIN 1.6 g/dL (3.4-5.0); ALKALINE PHOSPHATASE 175 Units/L (46-116); ASPARTATE AMINO TRANSFERASE 13 Units/L (15-37); BLOOD UREA NITROGEN 6 mg/dL (7-18); CALCIUM 7.9 mg/dL (8.5-10.1); CARBON DIOXIDE 23.5 mmol/L (21-32); CHLORIDE 111 mmol/L (98-107); COR CA(FOR HYPOALB) 9.8 mg/dL (8.5-10.1); COR NA(FOR HYPERGLY) 146 mmol/L (136-145); CREATININE 0.74 mg/dL (0.55-1.02); SODIUM 144 mmol/L (136-145); TOTAL PROTEIN 5.8 g/dL (6.4-8.2); eGFR NON BLACK RACES > 60 (>60)
[2018-05-03 07:04] LABS: BAND NEUTROPHILS % 4 % (0-10); PLATELET MORPHOLOGY COMMENT NORMAL (NORMAL)
[2018-05-03] MEDS: VANCOMYCIN HCL 1 GM VIAL 1 G in NS 250 ML IV 250 ML IV SCH ×2 (08:15→21:11)
[2018-05-03] MEDS: COZAAR PO SCH (08:15)
[2018-05-03] MEDS: LEVAQUIN PREMIX IV 750 MG 750 MG/150 ML BAG IV SCH (08:16)
[2018-05-03] MEDS: ULTRAM PO SCH ×2 (08:16→20:18)
[2018-05-03] MEDS: CYMBALTA PO SCH ×3 (08:17→20:17)
[2018-05-03] MEDS: ZINC SULFATE PO SCH ×2 (08:17→08:57)
[2018-05-03] MEDS: DITROPAN TAB 5 MG PO SCH ×2 (08:17→08:57)
[2018-05-03] MEDS: VITAMIN C PO SCH ×3 (08:17→20:18)
[2018-05-03] MEDS: DIFLUCAN PO SCH (08:18)
[2018-05-03] MEDS: LOVENOX INJ 40 MG SYR SC SCH (09:49)
[2018-05-03] MEDS: HumuLIN R SC PRN ×3 (12:16→20:21)
--- NOTE | 2018-05-03 14:06 | PCM.PROG ---
Progress Note - Progress Note for Day of Date of Exam: 05/03/18 - Subjective Subjective: 63 WF ER ADMISSION WITH CELLULITIS AND ABSCESS TO RIGHT BUTTOCK, POSITIVE FOR STAPH. PT CURRENTLY ON IV ATBX LEVAQUIN AND VANCOMYCIN, CULTURES POSITIVE FOR COAG NEG STAPH AND ENTEROCCUS. S/P I&D AND DEBRIDEMENT FOR DR GELLER. PT REPORTS SLIGHT IMPROVEMENT IN PAIN THIS AM. TISSUE TO RIGHT BUTTOCK PINK WITH MILD LOCALIZED REDNESS, IMPROVING ERYTHEMA TO SURROUNDING TISSUE, PACKING INTACT. CONTINUE WITH MILD MALODOROUS D/C. PLAN FOR REHAB PLACEMENT FOR WOUND CARE, CONSULT CASE MANAGEMENT - Past Medical Family Social History Past Med/Fam/Surg Hx: No changes since H&P Allergies: Allergies No Known Drug Allergies Allergy (Verified 04/26/18 11:35) - Review of Systems ROS: No change since H&P - Vital Signs and I&O's Vital Signs: Temperature 98.4 F Pulse Rate [Right Brachial] 93 Pulse Rate [Left Brachial] 87 Pulse Rate 88 Respiratory Rate 18 Blood Pressure [Right Arm] 157/69 Blood Pressure [Left Arm] 131/91 Blood Pressure 127/57 O2 Sat by Pulse Oximetry 96 Intake and Output: Intake & Output 05/01/18 05/02/18 05/03/18 05/04/18 11:59 11:59 11:59 11:59 Intake Total 2090 / 2090 1350 / 1350 1320 / 1320 Output Total 850 / 850 1050 / 1050 1350 / 1350 Balance 1240 / 1240 300 / 300 -30 / -30 - Physical Exam Oriented: Normal Eyes: Normal Ear: Normal Nose: Normal Throat: Normal Respiratory: Diminished Cardiovascular: Normal : Normal Auscultation: Bowel Sounds: Normal Tenderness: Normal Skin: Decreased Turgur, Red, Tender, Hot, Wound (large open wound 15 x 10 cm with other open area 3 x 3 cm and tunelling ..no further necrosis or abscess ) Musculoskeletal: Back:Lumbar Psychiatric: Anxiety Mood Description: Calm Affect: Anxious Speech Pattern: Clear, Appropriate - Laboratory and Diagnostics Result Diagrams: 05/03/18 05:08 05/03/18 05:08 Labs: 04/29/18 10:02 Buttock Gram Stain - Final 04/29/18 10:02 Buttock Wound Culture - Final Enterococcus Faecalis 04/27/18 13:15 Blood Blood Culture - Final 04/27/18 13:06 Blood Blood Culture - Final 04/26/18 12:05 Buttock Gram Stain - Final 04/26/18 12:05 Buttock Wound Culture - Final Laboratory WBC 12.5 X10^3/uL (3.6-10.0) H 05/03/18 05:08 RBC 3.11 X10^6/uL (3.5-5.4) L 05/03/18 05:08 Hgb 9.6 g/dL (12.0-16.0) L 05/03/18 05:08 Hct 28.2 % (36.0-47.0) L 05/03/18 05:08 MCV 90.7 fL (80.0-100.0) 05/03/18 05:08 MCH 30.7 pg (27.0-34.0) 05/03/18 05:08 MCHC 33.9 g/dL (33.0-35.0) 05/03/18 05:08 RDW 14.3 % (11.6-16.5) 05/03/18 05:08 Plt Count 101 X10^3/uL (150.0-450.0) L 05/03/18 05:08 Plt Count Comment Decreased (ADEQUATE) A 05/03/18 05:08 MPV 7.7 fL (7.4-11.0) 05/03/18 05:08 Neut % (Auto) 81.0 % (42.0-75.0) H 05/03/18 05:08 Lymph % (Auto) 11.4 % (21.0-51.0) L 05/03/18 05:08 [place] % (Auto) 5.3 % (0.0-13.0) 05/03/18 05:08 Eos % (Auto) 2.0 % (0.9-2.9) 05/03/18 05:08 Baso % (Auto) 0.3 % (0.2-1.0) 05/03/18 05:08 Neut # (Auto) 10.2 x10^3/uL (2.2-4.8) H 05/03/18 05:08 Lymph # (Auto) 1.4 X10^3/uL (1.3-2.9) 05/03/18 05:08 [place] # (Auto) 0.7 x10^3/uL (0.3-0.8) 05/03/18 05:08 Eos # (Auto) 0.2 x10^3/uL (0.0-0.2) 05/03/18 05:08 Baso # (Auto) 0.0 X10^3/uL (0.0-0.1) 05/03/18 05:08 Absolute Nucleated RBC 0.0 /100WBC 05/03/18 05:08 Total Counted 100 05/03/18 05:08 Neutrophils % (Manual) 80 % (39-76) H 05/03/18 05:08 Band Neutrophils % 4 % (0-10) 05/03/18 05:08 Lymphocytes % (Manual) 10 % (13-43) L 05/03/18 05:08 Monocytes % (Manual) 4 % (4-9) 05/03/18 05:08 Eosinophils % (Manual) 2 % (0-6) 05/03/18 05:08 Plt Morphology Comment Normal (NORMAL) 05/03/18 05:08 RBC Morphology Normal (NORMAL) 05/03/18 05:08 Sodium 144 mmol/L (136-145) 05/03/18 05:08 Corrected Sodium 146 mmol/L (136-145) H 05/03/18 05:08 Potassium 3.7 mmol/L (3.5-5.1) 05/03/18 05:08 Chloride 111 mmol/L (98-107) H 05/03/18 05:08 Carbon Dioxide 23.5 mmol/L (21-32) 05/03/18 05:08 BUN 6 mg/dL (7-18) L 05/03/18 05:08 Creatinine 0.74 mg/dL (0.55-1.02) 05/03/18 05:08 Est GFR (MDRD) Af Amer > 60 (>60) 05/03/18 05:08 Est GFR (MDRD) Non-Af > 60 (>60) 05/03/18 05:08 Glucose 197 mg/dL (65-99) H 05/03/18 05:08 POC Glucose (mg/dL) 226 mg/dL (65-99) H 05/03/18 11:34 Calcium 7.9 mg/dL (8.5-10.1) L 05/03/18 05:08 Corrected Calcium 9.8 mg/dL (8.5-10.1) 05/03/18 05:08 Magnesium 2.2 mg/dL (1.7-2.9) 04/27/18 04:46 Total Bilirubin 0.20 mg/dL (0.2-1.0) 05/03/18 05:08 AST 13 Units/L (15-37) L 05/03/18 05:08 ALT 19 Units/L (12-78) 05/03/18 05:08 Alkaline Phosphatase 175 Units/L (46-116) H 05/03/18 05:08 C-Reactive Protein 3.20 mg/L (0-3.0) H 04/26/18 12:20 Total Protein 5.8 g/dL (6.4-8.2) L 05/03/18 05:08 Albumin 1.6 g/dL (3.4-5.0) L 05/03/18 05:08 Globulin 4.2 g/dL (2.5-4.5) 05/03/18 05:08 Albumin/Globulin Ratio 0.4 Ratio (1.1-2.1) L 05/03/18 05:08 Specimen Type Catherized urine 04/29/18 11:30 Urine Color Yellow (YELLOW) 04/29/18 11:30 Urine Appearance Hazy (CLEAR) 04/29/18 11:30 Urine pH 5.0 (5.0 - 8.0) 04/29/18 11:30 Ur Specific [place] 1.015 (1.000-1.030) 04/29/18 11:30 Urine Protein 1+ (NEGATIVE) 04/29/18 11:30 Urine Glucose (UA) Negative (NEGATIVE) 04/29/18 11:30 Urine Ketones Negative (NEGATIVE) 04/29/18 11:30 Urine Occult Blood 3+ (NEGATIVE) 04/29/18 11:30 Urine Nitrite Negative (NEGATIVE) 04/29/18 11:30 Urine Bilirubin Negative (NEGATIVE) 04/29/18 11:30 Urine Urobilinogen Normal (NORMAL) 04/29/18 11:30 Ur Leukocyte Esterase Negative (NEGATIVE) 04/29/18 11:30 Urine RBC 0-2 /HPF (NONE SEEN) 04/29/18 11:30 Urine WBC 0-2 /HPF (NONE SEEN) 04/29/18 11:30 Ur Squamous Epith Cells Rare /HPF (NEGATIVE) 04/29/18 11:30 Amorphous Sediment 1+ /HPF (NEGATIVE) 04/29/18 11:30 Urine Bacteria Trace /HPF (NEGATIVE) 04/29/18 11:30 Hyaline Casts Many /LPF (NEGATIVE) 04/27/18 02:00 Ur Culture Indicated? No/not indicated 04/29/18 11:30 Vancomycin Trough 15.7 ug/mL (15-20) 05/02/18 07:52 Tissue Pathology To follow 04/29/18 10:05 - Plan (1) Cellulitis and abscess of buttock Status: Acute Plan: AM LABS. WOUND CULTURE, IV ATBX, DR GELLER CONSULTING. BP MONITORING, WOUND CARE. BLOOD SUGAR CONTROL (2) Necrotic eschar Status: Resolved (3) Diabetes Status: Acute Qualifiers: Diabetes mellitus type: due to underlying condition Diabetes mellitus intermediate project manager insulin use: with intermediate project manager use Diabetes mellitus complication status: with hyperglycemia Qualified Code(s): E08.65 - Diabetes mellitus due to underl marisol condition with hyperglycemia; Z79.4 - remote computer terminal operator (current) use of insulin
--- NOTE | 2018-05-03 15:14 | DR.PROGNOT ---
Hospital Progress Notes - Progress Note for Day of: Progress Note Date: 05/03/18 - Chief Complaint Chief Complaint: active and ambulatory.. feeling better with less pain and less drainage . BS 138. Vanco level 15.7 .Albumin 1.5..wbc 12.5. culture Gm+ cocci sensitive to Vancomycin and Levaquin . - Past Medical Family Social History Past Med/Fam/Surg Hx: No changes since H&P Allergies: Allergies No Known Drug Allergies Allergy (Verified 04/26/18 11:35) - Review Of Systems ROS: No change since H&P - Vital Signs Vital Signs: Temperature 98.4 F Pulse Rate [Right Brachial] 93 Pulse Rate [Left Brachial] 87 Pulse Rate 88 Respiratory Rate 18 Blood Pressure [Right Arm] 157/69 Blood Pressure [Left Arm] 131/91 Blood Pressure 127/57 O2 Sat by Pulse Oximetry 96 - Physical Exam Oriented: Normal Eyes: Normal Ear: Normal Nose: Normal Throat: Normal Respiratory: Diminished Cardiovascular: Normal : Normal GI:Auscultation: Normal GI:Palpation: Normal GI: Tenderness: Normal Skin: Decreased Turgur, Red, Tender, Hot, Wound (large open wound 15 x 10 cm with other open area 3 x 3 cm and tunelling ..no further necrosis or abscess ) Musculoskeletal: Back:Lumbar Psychiatric: Anxiety Mood Description: Calm Affect: Anxious Speech Pattern: Clear, Appropriate - Laboratory and Diagnostics Result Diagrams: 05/03/18 05:08 05/03/18 05:08 Labs: 04/29/18 10:02 Buttock Gram Stain - Final 04/29/18 10:02 Buttock Wound Culture - Final Enterococcus Faecalis 04/27/18 13:15 Blood Blood Culture - Final 04/27/18 13:06 Blood Blood Culture - Final 04/26/18 12:05 Buttock Gram Stain - Final 04/26/18 12:05 Buttock Wound Culture - Final Laboratory WBC 12.5 X10^3/uL (3.6-10.0) H 05/03/18 05:08 RBC 3.11 X10^6/uL (3.5-5.4) L 05/03/18 05:08 Hgb 9.6 g/dL (12.0-16.0) L 05/03/18 05:08 Hct 28.2 % (36.0-47.0) L 05/03/18 05:08 MCV 90.7 fL (80.0-100.0) 05/03/18 05:08 MCH 30.7 pg (27.0-34.0) 05/03/18 05:08 MCHC 33.9 g/dL (33.0-35.0) 05/03/18 05:08 RDW 14.3 % (11.6-16.5) 05/03/18 05:08 Plt Count 101 X10^3/uL (150.0-450.0) L 05/03/18 05:08 Plt Count Comment Decreased (ADEQUATE) A 05/03/18 05:08 MPV 7.7 fL (7.4-11.0) 05/03/18 05:08 Neut % (Auto) 81.0 % (42.0-75.0) H 05/03/18 05:08 Lymph % (Auto) 11.4 % (21.0-51.0) L 05/03/18 05:08 [place] % (Auto) 5.3 % (0.0-13.0) 05/03/18 05:08 Eos % (Auto) 2.0 % (0.9-2.9) 05/03/18 05:08 Baso % (Auto) 0.3 % (0.2-1.0) 05/03/18 05:08 Neut # (Auto) 10.2 x10^3/uL (2.2-4.8) H 05/03/18 05:08 Lymph # (Auto) 1.4 X10^3/uL (1.3-2.9) 05/03/18 05:08 [place] # (Auto) 0.7 x10^3/uL (0.3-0.8) 05/03/18 05:08 Eos # (Auto) 0.2 x10^3/uL (0.0-0.2) 05/03/18 05:08 Baso # (Auto) 0.0 X10^3/uL (0.0-0.1) 05/03/18 05:08 Absolute Nucleated RBC 0.0 /100WBC 05/03/18 05:08 Total Counted 100 05/03/18 05:08 Neutrophils % (Manual) 80 % (39-76) H 05/03/18 05:08 Band Neutrophils % 4 % (0-10) 05/03/18 05:08 Lymphocytes % (Manual) 10 % (13-43) L 05/03/18 05:08 Monocytes % (Manual) 4 % (4-9) 05/03/18 05:08 Eosinophils % (Manual) 2 % (0-6) 05/03/18 05:08 Plt Morphology Comment Normal (NORMAL) 05/03/18 05:08 RBC Morphology Normal (NORMAL) 05/03/18 05:08 Sodium 144 mmol/L (136-145) 05/03/18 05:08 Corrected Sodium 146 mmol/L (136-145) H 05/03/18 05:08 Potassium 3.7 mmol/L (3.5-5.1) 05/03/18 05:08 Chloride 111 mmol/L (98-107) H 05/03/18 05:08 Carbon Dioxide 23.5 mmol/L (21-32) 05/03/18 05:08 BUN 6 mg/dL (7-18) L 05/03/18 05:08 Creatinine 0.74 mg/dL (0.55-1.02) 05/03/18 05:08 Est GFR (MDRD) Af Amer > 60 (>60) 05/03/18 05:08 Est GFR (MDRD) Non-Af > 60 (>60) 05/03/18 05:08 Glucose 197 mg/dL (65-99) H 05/03/18 05:08 POC Glucose (mg/dL) 226 mg/dL (65-99) H 05/03/18 11:34 Calcium 7.9 mg/dL (8.5-10.1) L 05/03/18 05:08 Corrected Calcium 9.8 mg/dL (8.5-10.1) 05/03/18 05:08 Magnesium 2.2 mg/dL (1.7-2.9) 04/27/18 04:46 Total Bilirubin 0.20 mg/dL (0.2-1.0) 05/03/18 05:08 AST 13 Units/L (15-37) L 05/03/18 05:08 ALT 19 Units/L (12-78) 05/03/18 05:08 Alkaline Phosphatase 175 Units/L (46-116) H 05/03/18 05:08 C-Reactive Protein 3.20 mg/L (0-3.0) H 04/26/18 12:20 Total Protein 5.8 g/dL (6.4-8.2) L 05/03/18 05:08 Albumin 1.6 g/dL (3.4-5.0) L 05/03/18 05:08 Globulin 4.2 g/dL (2.5-4.5) 05/03/18 05:08 Albumin/Globulin Ratio 0.4 Ratio (1.1-2.1) L 05/03/18 05:08 Specimen Type Catherized urine 04/29/18 11:30 Urine Color Yellow (YELLOW) 04/29/18 11:30 Urine Appearance Hazy (CLEAR) 04/29/18 11:30 Urine pH 5.0 (5.0 - 8.0) 04/29/18 11:30 Ur Specific [place] 1.015 (1.000-1.030) 04/29/18 11:30 Urine Protein 1+ (NEGATIVE) 04/29/18 11:30 Urine Glucose (UA) Negative (NEGATIVE) 04/29/18 11:30 Urine Ketones Negative (NEGATIVE) 04/29/18 11:30 Urine Occult Blood 3+ (NEGATIVE) 04/29/18 11:30 Urine Nitrite Negative (NEGATIVE) 04/29/18 11:30 Urine Bilirubin Negative (NEGATIVE) 04/29/18 11:30 Urine Urobilinogen Normal (NORMAL) 04/29/18 11:30 Ur Leukocyte Esterase Negative (NEGATIVE) 04/29/18 11:30 Urine RBC 0-2 /HPF (NONE SEEN) 04/29/18 11:30 Urine WBC 0-2 /HPF (NONE SEEN) 04/29/18 11:30 Ur Squamous Epith Cells Rare /HPF (NEGATIVE) 04/29/18 11:30 Amorphous Sediment 1+ /HPF (NEGATIVE) 04/29/18 11:30 Urine Bacteria Trace /HPF (NEGATIVE) 04/29/18 11:30 Hyaline Casts Many /LPF (NEGATIVE) 04/27/18 02:00 Ur Culture Indicated? No/not indicated 04/29/18 11:30 Vancomycin Trough 15.7 ug/mL (15-20) 05/02/18 07:52 Tissue Pathology To follow 04/29/18 10:05 - Assessment and Plan 1: large Rt buttock wound .s/p extensive debridement. on IV ATB . 2: DM ,controlled 3: Morbid obesity . same local care , IV ATB and DVT prophylaxis . no need for surgery now .. 4: hypoalbuminemia , anemia . - Problem Patient Problems: Patient Problems Mild dehydration (Acute) E86.0 Cellulitis and abscess of buttock (Acute) L02.31, L03.317 Acute hyponatremia (Acute) E87.1 Metabolic acidosis (Acute) E87.2 Diabetes (Acute) E11.9 Necrotic eschar (Resolved) L98.8
[2018-05-03] MEDS: NYSTATIN CREAM TOP PRN (17:07)
[2018-05-03] MEDS: SNACK - Diabetic Appropriate PO SCH (20:17)
[2018-05-03] MEDS: COLACE CAP 100 MG PO SCH (20:17)
[2018-05-03] MEDS: MILK OF MAGNESIA PO SCH (20:19)
[2018-05-03] MEDS ORDERED: PHARMACY COMMENT IV NR (20:30)
[2018-05-03 21:02] LABS: CREATININE 0.84 mg/dL (0.55-1.02); VANCOMYCIN,TROUGH 16.4 ug/mL (15-20)
[2018-05-04] MEDS: NORCO 5/325 MG TAB PO PRN ×3 (04:40→21:41)
[2018-05-04] MEDS: HumuLIN R SC PRN ×4 (05:40→20:10)
[2018-05-04 06:14] LABS: BASOPHILS % (AUTO) 0.3 % (0.2-1.0); EOSINOPHILS # (AUTO) 0.3 x10^3/uL (0.0-0.2); EOSINOPHILS % (AUTO) 2.2 % (0.9-2.9); HEMATOCRIT 28.7 % (36.0-47.0); HEMOGLOBIN 9.6 g/dL (12.0-16.0); LYMPHOCYTES # (AUTO) 1.5 X10^3/uL (1.3-2.9); MEAN CORPUSCULAR HEMOGLOBIN 30.7 pg (27.0-34.0); MEAN CORPUSCULAR HGB CONC 33.6 g/dL (33.0-35.0); MEAN CORPUSCULAR VOLUME 91.4 fL (80.0-100.0); MEAN PLATELET VOLUME 7.5 fL (7.4-11.0); MONOCYTES # (AUTO) 0.7 x10^3/uL (0.3-0.8); MONOCYTES % (AUTO) 5.5 % (0.0-13.0); NEUTROPHILS # (AUTO) 10.1 x10^3/uL (2.2-4.8); PLATELET COUNT 111 X10^3/uL (150.0-450.0); RED BLOOD COUNT 3.13 X10^6/uL (3.5-5.4); WHITE BLOOD COUNT 12.7 X10^3/uL (3.6-10.0)
[2018-05-04 06:28] LABS: ALANINE AMINOTRANSFERASE 19 Units/L (12-78); ALBUMIN 1.6 g/dL (3.4-5.0); ALKALINE PHOSPHATASE 154 Units/L (46-116); ASPARTATE AMINO TRANSFERASE 13 Units/L (15-37); BLOOD UREA NITROGEN 5 mg/dL (7-18); CALCIUM 8.2 mg/dL (8.5-10.1); CARBON DIOXIDE 24.6 mmol/L (21-32); CHLORIDE 110 mmol/L (98-107); COR CA(FOR HYPOALB) 10.1 mg/dL (8.5-10.1); COR NA(FOR HYPERGLY) 148 mmol/L (136-145); CREATININE 0.82 mg/dL (0.55-1.02); SODIUM 144 mmol/L (136-145); TOTAL PROTEIN 5.8 g/dL (6.4-8.2); eGFR NON BLACK RACES > 60 (>60)
[2018-05-04] MEDS: K-DUR TAB 20 MEQ PO PRN (06:38)
[2018-05-04 07:12] LABS: BAND NEUTROPHILS % 5 % (0-10); PLATELET MORPHOLOGY COMMENT NORMAL (NORMAL)
[2018-05-04] MEDS: COZAAR PO SCH (09:46)
[2018-05-04] MEDS: DIFLUCAN PO SCH (09:47)
[2018-05-04] MEDS: DITROPAN TAB 5 MG PO SCH (09:47)
[2018-05-04] MEDS: LEVAQUIN PREMIX IV 750 MG 750 MG/150 ML BAG IV SCH (09:47)
[2018-05-04] MEDS: LOVENOX INJ 40 MG SYR SC SCH (09:47)
[2018-05-04] MEDS: CYMBALTA PO SCH ×2 (09:47→20:06)
[2018-05-04] MEDS: ULTRAM PO SCH ×2 (09:48→20:08)
[2018-05-04] MEDS: VITAMIN C PO SCH ×2 (09:49→20:06)
[2018-05-04] MEDS: VANCOMYCIN HCL 1 GM VIAL 1 G in NS 250 ML IV 250 ML IV SCH ×2 (09:49→20:09)
[2018-05-04] MEDS: ZINC SULFATE PO SCH (09:49)
[2018-05-04] MEDS: MORPHINE SULFATE INJ 2 MG INJ IVP PRN (09:50)
--- NOTE | 2018-05-04 11:57 | RAD ---
Examination: Chest, PA and lateral views History: Leukocytosis Comparison 04/29/2018 Findings: Stable cardiomegaly. There is no focal consolidation or pleural fluid demonstrated. The submitted lateral view is technically nondiagnostic. There is a diffuse bilateral interstitial prominence which may be chronic. The previously noted PICC has been removed. Impression: Stable cardiomegaly with probably chronic interstitial pulmonary process. No acute abnormality demonstrated. Reported By:
[2018-05-04] MEDS: PROTONIX TAB 40 MG PO SCH (13:17)
[2018-05-04] MEDS: NYSTATIN CREAM TOP PRN ×2 (15:20→20:13)
[2018-05-04] MEDS: SNACK - Diabetic Appropriate PO SCH (20:06)
[2018-05-04] MEDS: COLACE CAP 100 MG PO SCH (20:07)
[2018-05-04] MEDS: MILK OF MAGNESIA PO SCH (20:07)
[2018-05-05] MEDS: NORCO 5/325 MG TAB PO PRN ×5 (01:49→21:28)
[2018-05-05] MEDS: HumuLIN R SC PRN ×4 (05:48→20:11)
[2018-05-05 06:39] LABS: BASOPHILS # (AUTO) 0.1 X10^3/uL (0.0-0.1); BASOPHILS % (AUTO) 0.8 % (0.2-1.0); EOSINOPHILS # (AUTO) 0.3 x10^3/uL (0.0-0.2); EOSINOPHILS % (AUTO) 2.3 % (0.9-2.9); HEMATOCRIT 28.3 % (36.0-47.0); HEMOGLOBIN 9.5 g/dL (12.0-16.0); LYMPHOCYTES % (AUTO) 17.2 % (21.0-51.0); MEAN CORPUSCULAR HEMOGLOBIN 30.6 pg (27.0-34.0); MEAN CORPUSCULAR HGB CONC 33.7 g/dL (33.0-35.0); MEAN CORPUSCULAR VOLUME 90.8 fL (80.0-100.0); MEAN PLATELET VOLUME 7.1 fL (7.4-11.0); MONOCYTES # (AUTO) 0.6 x10^3/uL (0.3-0.8); MONOCYTES % (AUTO) 5.3 % (0.0-13.0); NEUTROPHILS # (AUTO) 8.7 x10^3/uL (2.2-4.8); NEUTROPHILS % (AUTO) 74.4 % (42.0-75.0); PLATELET COUNT 137 X10^3/uL (150.0-450.0); RED BLOOD COUNT 3.12 X10^6/uL (3.5-5.4); RED CELL DISTRIBUTION WIDTH 14.3 % (11.6-16.5); WHITE BLOOD COUNT 11.7 X10^3/uL (3.6-10.0)
[2018-05-05 07:06] LABS: ALANINE AMINOTRANSFERASE 19 Units/L (12-78); ALBUMIN 1.7 g/dL (3.4-5.0); ALKALINE PHOSPHATASE 132 Units/L (46-116); ASPARTATE AMINO TRANSFERASE 14 Units/L (15-37); BLOOD UREA NITROGEN 5 mg/dL (7-18); CALCIUM 8.4 mg/dL (8.5-10.1); CARBON DIOXIDE 26.8 mmol/L (21-32); CHLORIDE 111 mmol/L (98-107); COR CA(FOR HYPOALB) 10.2 mg/dL (8.5-10.1); COR NA(FOR HYPERGLY) 147 mmol/L (136-145); CREATININE 0.72 mg/dL (0.55-1.02); SODIUM 145 mmol/L (136-145); TOTAL PROTEIN 5.8 g/dL (6.4-8.2); eGFR NON BLACK RACES > 60 (>60)
[2018-05-05 09:17] LABS: MAGNESIUM 1.6 mg/dL (1.7-2.9)
[2018-05-05] MEDS: DIFLUCAN PO SCH (09:20)
[2018-05-05] MEDS: LOVENOX INJ 40 MG SYR SC SCH (09:20)
[2018-05-05] MEDS: PROTONIX TAB 40 MG PO SCH (09:20)
[2018-05-05] MEDS: ZINC SULFATE PO SCH (09:20)
[2018-05-05] MEDS: ULTRAM PO SCH ×2 (09:21→20:09)
[2018-05-05 09:22] LABS: CREATININE 0.74 mg/dL (0.55-1.02); VANCOMYCIN,TROUGH 15.5 ug/mL (15-20)
[2018-05-05] MEDS: DITROPAN TAB 5 MG PO SCH (09:22)
[2018-05-05] MEDS: VITAMIN C PO SCH ×2 (09:22→20:08)
[2018-05-05] MEDS: COZAAR PO SCH (09:22)
[2018-05-05] MEDS: LEVAQUIN PREMIX IV 750 MG 750 MG/150 ML BAG IV SCH (09:22)
[2018-05-05] MEDS: K-DUR TAB 20 MEQ PO PRN (09:25)
[2018-05-05] MEDS ORDERED: ZOFRAN INJ 4 MG VIAL IVP PRN (09:37)
--- NOTE | 2018-05-05 09:55 | DR.PROGNOT ---
Hospital Progress Notes - Progress Note for Day of: Progress Note Date: 05/05/18 - Chief Complaint Chief Complaint: active and ambulatory.. feeling better with less pain. moderate drainage from the open wound .. - Past Medical Family Social History Past Med/Fam/Surg Hx: No changes since H&P Allergies: Allergies No Known Drug Allergies Allergy (Verified 04/26/18 11:35) - Review Of Systems ROS: No change since H&P - Vital Signs Vital Signs: Temperature 97.7 F Pulse Rate [Right Brachial] 95 Pulse Rate [Left Brachial] 87 Pulse Rate 88 Respiratory Rate 20 Blood Pressure [Right Arm] 119/56 Blood Pressure [Left Arm] 118/67 Blood Pressure 127/57 O2 Sat by Pulse Oximetry 96 - Physical Exam Oriented: Normal Eyes: Normal Ear: Normal Nose: Normal Throat: Normal Respiratory: Diminished Cardiovascular: Normal : Normal GI:Auscultation: Normal GI:Palpation: Normal GI: Tenderness: Normal Skin: Decreased [place]urg[place], Red, Tender, Hot, Wound (large open wound 15 x 10 cm with other open area 3 x 3 cm and tunelling ..some necrosis aound the edges and base of the wound ) Musculoskeletal: Back:Lumbar Psychiatric: Anxiety Mood Description: Calm Affect: Anxious Speech Pattern: Clear, Appropriate - Laboratory and Diagnostics Result Diagrams: 05/05/18 06:17 05/05/18 08:37 Labs: 04/29/18 10:02 Buttock Gram Stain - Final 04/29/18 10:02 Buttock Wound Culture - Final Enterococcus Faecalis 04/27/18 13:15 Blood Blood Culture - Final 04/27/18 13:06 Blood Blood Culture - Final 04/26/18 12:05 Buttock Gram Stain - Final 04/26/18 12:05 Buttock Wound Culture - Final Laboratory WBC 11.7 X10^3/uL (3.6-10.0) H 05/05/18 06:17 RBC 3.12 X10^6/uL (3.5-5.4) L 05/05/18 06:17 Hgb 9.5 g/dL (12.0-16.0) L 05/05/18 06:17 Hct 28.3 % (36.0-47.0) L 05/05/18 06:17 MCV 90.8 fL (80.0-100.0) 05/05/18 06:17 MCH 30.6 pg (27.0-34.0) 05/05/18 06:17 MCHC 33.7 g/dL (33.0-35.0) 05/05/18 06:17 RDW 14.3 % (11.6-16.5) 05/05/18 06:17 Plt Count 137 X10^3/uL (150.0-450.0) L 05/05/18 06:17 Plt Count Comment Adequate (ADEQUATE) 05/04/18 05:45 MPV 7.1 fL (7.4-11.0) L 05/05/18 06:17 Neut % (Auto) 74.4 % (42.0-75.0) 05/05/18 06:17 Lymph % (Auto) 17.2 % (21.0-51.0) L 05/05/18 06:17 [place] % (Auto) 5.3 % (0.0-13.0) 05/05/18 06:17 Eos % (Auto) 2.3 % (0.9-2.9) 05/05/18 06:17 Baso % (Auto) 0.8 % (0.2-1.0) 05/05/18 06:17 Neut # (Auto) 8.7 x10^3/uL (2.2-4.8) H 05/05/18 06:17 Lymph # (Auto) 2.0 X10^3/uL (1.3-2.9) 05/05/18 06:17 [place] # (Auto) 0.6 x10^3/uL (0.3-0.8) 05/05/18 06:17 Eos # (Auto) 0.3 x10^3/uL (0.0-0.2) H 05/05/18 06:17 Baso # (Auto) 0.1 X10^3/uL (0.0-0.1) 05/05/18 06:17 Absolute Nucleated RBC 0.1 /100WBC 05/05/18 06:17 Total Counted 100 05/04/18 05:45 Neutrophils % (Manual) 81 % (39-76) H 05/04/18 05:45 Band Neutrophils % 5 % (0-10) 05/04/18 05:45 Lymphocytes % (Manual) 12 % (13-43) L 05/04/18 05:45 Monocytes % (Manual) 1 % (4-9) L 05/04/18 05:45 Eosinophils % (Manual) 1 % (0-6) 05/04/18 05:45 Plt Morphology Comment Normal (NORMAL) 05/04/18 05:45 RBC Morphology Normal (NORMAL) 05/04/18 05:45 Sodium 145 mmol/L (136-145) 05/05/18 06:17 Corrected Sodium 147 mmol/L (136-145) H 05/05/18 06:17 Potassium 3.4 mmol/L (3.5-5.1) L 05/05/18 06:17 Chloride 111 mmol/L (98-107) H 05/05/18 06:17 Carbon Dioxide 26.8 mmol/L (21-32) 05/05/18 06:17 BUN 5 mg/dL (7-18) L 05/05/18 06:17 Creatinine 0.74 mg/dL (0.55-1.02) 05/05/18 08:37 Est GFR (MDRD) Af Amer > 60 (>60) 05/05/18 06:17 Est GFR (MDRD) Non-Af > 60 (>60) 05/05/18 06:17 Glucose 181 mg/dL (65-99) H 05/05/18 06:17 POC Glucose (mg/dL) 172 mg/dL (65-99) H 05/05/18 05:40 Calcium 8.4 mg/dL (8.5-10.1) L 05/05/18 06:17 Corrected Calcium 10.2 mg/dL (8.5-10.1) H 05/05/18 06:17 Magnesium 1.6 mg/dL (1.7-2.9) L 05/05/18 08:37 Total Bilirubin 0.20 mg/dL (0.2-1.0) 05/05/18 06:17 AST 14 Units/L (15-37) L 05/05/18 06:17 ALT 19 Units/L (12-78) 05/05/18 06:17 Alkaline Phosphatase 132 Units/L (46-116) H 05/05/18 06:17 C-Reactive Protein 3.20 mg/L (0-3.0) H 04/26/18 12:20 Total Protein 5.8 g/dL (6.4-8.2) L 05/05/18 06:17 Albumin 1.7 g/dL (3.4-5.0) L 05/05/18 06:17 Globulin 4.1 g/dL (2.5-4.5) 05/05/18 06:17 Albumin/Globulin Ratio 0.4 Ratio (1.1-2.1) L 05/05/18 06:17 Specimen Type Catherized urine 04/29/18 11:30 Urine Color Yellow (YELLOW) 04/29/18 11:30 Urine Appearance Hazy (CLEAR) 04/29/18 11:30 Urine pH 5.0 (5.0 - 8.0) 04/29/18 11:30 Ur Specific [place] 1.015 (1.000-1.030) 04/29/18 11:30 Urine Protein 1+ (NEGATIVE) 04/29/18 11:30 Urine Glucose (UA) Negative (NEGATIVE) 04/29/18 11:30 Urine Ketones Negative (NEGATIVE) 04/29/18 11:30 Urine Occult Blood 3+ (NEGATIVE) 04/29/18 11:30 Urine Nitrite Negative (NEGATIVE) 04/29/18 11:30 Urine Bilirubin Negative (NEGATIVE) 04/29/18 11:30 Urine Urobilinogen Normal (NORMAL) 04/29/18 11:30 Ur Leukocyte Esterase Negative (NEGATIVE) 04/29/18 11:30 Urine RBC 0-2 /HPF (NONE SEEN) 04/29/18 11:30 Urine WBC 0-2 /HPF (NONE SEEN) 04/29/18 11:30 Ur Squamous Epith Cells Rare /HPF (NEGATIVE) 04/29/18 11:30 Amorphous Sediment 1+ /HPF (NEGATIVE) 04/29/18 11:30 Urine Bacteria Trace /HPF (NEGATIVE) 04/29/18 11:30 Hyaline Casts Many /LPF (NEGATIVE) 04/27/18 02:00 Ur Culture Indicated? No/not indicated 04/29/18 11:30 Vancomycin Trough 15.5 ug/mL (15-20) 05/05/18 08:37 Tissue Pathology To follow 04/29/18 10:05 - Assessment and Plan 1: perianal abscess with large Rt buttock necrotic ulcer .s/p debridement. on IV ATB . 2: DM ,controlled 3: Morbid obesity . same local care , IV ATB and DVT prophylaxis . for debridement of the wound in am. 4: hypoalbuminemia , anemia . - Problem Patient Problems: Patient Problems Mild dehydration (Acute) E86.0 Cellulitis and abscess of buttock (Acute) L02.31, L03.317 Acute hyponatremia (Acute) E87.1 Metabolic acidosis (Acute) E87.2 Diabetes (Acute) E11.9 Necrotic eschar (Resolved) L98.8
[2018-05-05] MEDS: CYMBALTA PO SCH ×2 (10:35→20:08)
[2018-05-05] MEDS: VANCOMYCIN HCL 1 GM VIAL 1 G in NS 250 ML IV 250 ML IV SCH ×2 (10:35→20:10)
[2018-05-05] MEDS: MAGNESIUM SULFATE 1 GRAM/100 mL PREMIX 1 GM/100 ML BAG IV PRN ×2 (13:00→14:32)
[2018-05-05] MEDS: NS 500 ML IV 500 ML IV SCH (20:07)
[2018-05-05] MEDS: SNACK - Diabetic Appropriate PO SCH (20:07)
[2018-05-05] MEDS: COLACE CAP 100 MG PO SCH (20:09)
[2018-05-05] MEDS: MILK OF MAGNESIA PO SCH (20:09)
[2018-05-05] MEDS: XANAX PO SCH (20:12)
[2018-05-06] MEDS: NORCO 5/325 MG TAB PO PRN ×3 (01:47→21:58)
[2018-05-06] MEDS: MORPHINE SULFATE INJ 2 MG INJ IVP PRN (03:44)
[2018-05-06] MEDS: HumuLIN R SC PRN ×4 (05:33→20:31)
[2018-05-06 06:18] LABS: BASOPHILS # (AUTO) 0.1 X10^3/uL (0.0-0.1); BASOPHILS % (AUTO) 0.8 % (0.2-1.0); EOSINOPHILS # (AUTO) 0.2 x10^3/uL (0.0-0.2); EOSINOPHILS % (AUTO) 2.3 % (0.9-2.9); HEMATOCRIT 26.7 % (36.0-47.0); HEMOGLOBIN 9.1 g/dL (12.0-16.0); LYMPHOCYTES # (AUTO) 1.8 X10^3/uL (1.3-2.9); LYMPHOCYTES % (AUTO) 17.8 % (21.0-51.0); MEAN CORPUSCULAR HEMOGLOBIN 31.1 pg (27.0-34.0); MEAN CORPUSCULAR HGB CONC 34.3 g/dL (33.0-35.0); MEAN CORPUSCULAR VOLUME 90.7 fL (80.0-100.0); MEAN PLATELET VOLUME 7.6 fL (7.4-11.0); MONOCYTES # (AUTO) 0.6 x10^3/uL (0.3-0.8); MONOCYTES % (AUTO) 6.3 % (0.0-13.0); NEUTROPHILS # (AUTO) 7.5 x10^3/uL (2.2-4.8); NEUTROPHILS % (AUTO) 72.8 % (42.0-75.0); PLATELET COUNT 148 X10^3/uL (150.0-450.0); RED BLOOD COUNT 2.94 X10^6/uL (3.5-5.4); RED CELL DISTRIBUTION WIDTH 13.7 % (11.6-16.5); WHITE BLOOD COUNT 10.3 X10^3/uL (3.6-10.0)
[2018-05-06 06:23] LABS: ALANINE AMINOTRANSFERASE 16 Units/L (12-78); ALBUMIN 1.5 g/dL (3.4-5.0); ALKALINE PHOSPHATASE 115 Units/L (46-116); ASPARTATE AMINO TRANSFERASE 16 Units/L (15-37); BLOOD UREA NITROGEN 7 mg/dL (7-18); CARBON DIOXIDE 27.3 mmol/L (21-32); CHLORIDE 109 mmol/L (98-107); COR NA(FOR HYPERGLY) 148 mmol/L (136-145); MAGNESIUM 1.7 mg/dL (1.7-2.9); SODIUM 145 mmol/L (136-145); TOTAL PROTEIN 5.6 g/dL (6.4-8.2); eGFR NON BLACK RACES > 60 (>60)
[2018-05-06] MEDS: VANCOMYCIN HCL 1 GM VIAL 1 G in NS 250 ML IV 250 ML IV SCH (08:16)
[2018-05-06] MEDS: COZAAR PO SCH (08:16)
[2018-05-06] MEDS ORDERED: FENTANYL INJ 100 mcg ONE (08:26)
[2018-05-06] MEDS ORDERED: HYDROGEN PEROXIDE 3% ONE (08:29)
[2018-05-06] MEDS ORDERED: BACITRACIN VIAL ONE ×2 (08:30→10:09)
[2018-05-06] MEDS ORDERED: LR 1000 ML IV 1,000 ML IV ONE (08:46)
[2018-05-06] MEDS ORDERED: PHENERGAN INJ 25 MG IVP PRN (09:51)
[2018-05-06] MEDS ORDERED: ZOFRAN INJ 4 MG VIAL IVP PRN (09:51)
[2018-05-06] MEDS ORDERED: BENADRYL INJ 50 MG VIAL IVP PRN (09:51)
[2018-05-06] MEDS ORDERED: DILAUDID INJ IVP PRN (09:51)
[2018-05-06] MEDS ORDERED: REGLAN INJ 10 MG VIAL IVP PRN (09:51)
[2018-05-06] MEDS ORDERED: DILAUDID INJ ONE (09:59)
[2018-05-06] MEDS: PROTONIX TAB 40 MG PO SCH (10:42)
[2018-05-06] MEDS: DIFLUCAN PO SCH (10:42)
[2018-05-06] MEDS: DITROPAN TAB 5 MG PO SCH (10:42)
[2018-05-06] MEDS: VITAMIN C PO SCH ×2 (10:42→20:28)
[2018-05-06] MEDS: ULTRAM PO SCH ×2 (10:42→20:28)
[2018-05-06] MEDS: CYMBALTA PO SCH ×2 (10:43→20:32)
[2018-05-06] MEDS: ZINC SULFATE PO SCH (10:43)
[2018-05-06] MEDS: LEVAQUIN PREMIX IV 750 MG 750 MG/150 ML BAG IV SCH (11:35)
[2018-05-06] MEDS: LOVENOX INJ 40 MG SYR SC SCH (11:36)
[2018-05-06] MEDS ORDERED: MAALOX or MYLANTA PO PRN (11:38)
[2018-05-06] MEDS ORDERED: LASIX IVP ONE (12:55)
[2018-05-06] MEDS ORDERED: LASIX ONE (12:57)
--- NOTE | 2018-05-06 14:54 | OR.GENERIC ---
Post-Op Note Generic - Post-Op Note Operative Report: excisional debridement of Rt gluteal wound was done .. 16 x 16 cm . Pt did well .. same local care , ATB and good diabetic control
[2018-05-06] MEDS: SNACK - Diabetic Appropriate PO SCH (20:00)
[2018-05-06] MEDS: XANAX PO SCH (20:28)
[2018-05-06] MEDS: COLACE CAP 100 MG PO SCH (20:28)
[2018-05-06] MEDS: MILK OF MAGNESIA PO SCH (20:32)
[2018-05-06 21:23] LABS: CREATININE 0.88 mg/dL (0.55-1.02)
[2018-05-06 21:29] LABS: VANCOMYCIN,TROUGH 20.1 ug/mL (15-20)
[2018-05-06] MEDS: VANCOMYCIN HCL 500 MG VIAL 750 MG in NS 250 ML IV 250 ML IV SCH (22:11)
[2018-05-07] MEDS: MORPHINE SULFATE INJ 2 MG INJ IVP PRN ×3 (00:11→12:22)
[2018-05-07] MEDS: NS 500 ML IV 500 ML IV SCH (03:41)
[2018-05-07 06:21] LABS: BASOPHILS # (AUTO) 0.1 X10^3/uL (0.0-0.1); BASOPHILS % (AUTO) 0.9 % (0.2-1.0); EOSINOPHILS # (AUTO) 0.2 x10^3/uL (0.0-0.2); EOSINOPHILS % (AUTO) 2.7 % (0.9-2.9); HEMATOCRIT 26.3 % (36.0-47.0); LYMPHOCYTES # (AUTO) 1.8 X10^3/uL (1.3-2.9); LYMPHOCYTES % (AUTO) 19.5 % (21.0-51.0); MEAN CORPUSCULAR HGB CONC 34.2 g/dL (33.0-35.0); MEAN CORPUSCULAR VOLUME 90.6 fL (80.0-100.0); MEAN PLATELET VOLUME 7.4 fL (7.4-11.0); MONOCYTES # (AUTO) 0.7 x10^3/uL (0.3-0.8); MONOCYTES % (AUTO) 7.6 % (0.0-13.0); NEUTROPHILS # (AUTO) 6.4 x10^3/uL (2.2-4.8); NEUTROPHILS % (AUTO) 69.3 % (42.0-75.0); PLATELET COUNT 189 X10^3/uL (150.0-450.0); RED CELL DISTRIBUTION WIDTH 14.2 % (11.6-16.5); WHITE BLOOD COUNT 9.2 X10^3/uL (3.6-10.0)
[2018-05-07] MEDS: HumuLIN R SC PRN ×5 (06:26→21:10)
[2018-05-07 06:30] LABS: ALANINE AMINOTRANSFERASE 16 Units/L (12-78); ALBUMIN 1.6 g/dL (3.4-5.0); ALKALINE PHOSPHATASE 104 Units/L (46-116); ASPARTATE AMINO TRANSFERASE 14 Units/L (15-37); BLOOD UREA NITROGEN 6 mg/dL (7-18); CALCIUM 7.7 mg/dL (8.5-10.1); CARBON DIOXIDE 31.1 mmol/L (21-32); CHLORIDE 109 mmol/L (98-107); COR CA(FOR HYPOALB) 9.6 mg/dL (8.5-10.1); COR NA(FOR HYPERGLY) 147 mmol/L (136-145); CREATININE 0.82 mg/dL (0.55-1.02); SODIUM 145 mmol/L (136-145); TOTAL PROTEIN 5.6 g/dL (6.4-8.2); eGFR NON BLACK RACES > 60 (>60)
--- NOTE | 2018-05-07 07:57 | DR.PROGNOT ---
Hospital Progress Notes - Progress Note for Day of: Progress Note Date: 05/07/18 - Chief Complaint Chief Complaint: s/p debridement of Rt roberto anal and gluteal wound .. c/o pain .. moderate drainage . - Past Medical Family Social History Past Med/Fam/Surg Hx: No changes since H&P Allergies: Allergies No Known Drug Allergies Allergy (Verified 04/26/18 11:35) - Review Of Systems ROS: No change since H&P - Vital Signs Vital Signs: Temperature 98.3 F Pulse Rate [Right Brachial] 97 Pulse Rate [Left Brachial] 108 Pulse Rate 94 Respiratory Rate 20 Blood Pressure [Right Arm] 166/74 Blood Pressure [Left Arm] 135/60 Blood Pressure 139/63 O2 Sat by Pulse Oximetry 93 - Physical Exam Oriented: Normal Eyes: Normal Ear: Normal Nose: Normal Throat: Normal Respiratory: Diminished Cardiovascular: Normal : Normal GI:Auscultation: Normal GI:Palpation: Normal GI: Tenderness: Normal Skin: Hot, Wound (large open wound 16 x 16 cm , no necrosis or abscess formation ) Musculoskeletal: Back:Lumbar Psychiatric: Anxiety Mood Description: Calm Affect: Anxious Speech Pattern: Clear, Appropriate - Laboratory and Diagnostics Result Diagrams: 05/07/18 05:44 05/07/18 05:44 Labs: 04/29/18 10:02 Buttock Gram Stain - Final 04/29/18 10:02 Buttock Wound Culture - Final Enterococcus Faecalis 04/27/18 13:15 Blood Blood Culture - Final 04/27/18 13:06 Blood Blood Culture - Final 04/26/18 12:05 Buttock Gram Stain - Final 04/26/18 12:05 Buttock Wound Culture - Final Laboratory WBC 9.2 X10^3/uL (3.6-10.0) 05/07/18 05:44 RBC 2.90 X10^6/uL (3.5-5.4) L 05/07/18 05:44 Hgb 9.0 g/dL (12.0-16.0) L 05/07/18 05:44 Hct 26.3 % (36.0-47.0) L 05/07/18 05:44 MCV 90.6 fL (80.0-100.0) 05/07/18 05:44 MCH 31.0 pg (27.0-34.0) 05/07/18 05:44 MCHC 34.2 g/dL (33.0-35.0) 05/07/18 05:44 RDW 14.2 % (11.6-16.5) 05/07/18 05:44 Plt Count 189 X10^3/uL (150.0-450.0) 05/07/18 05:44 Plt Count Comment Adequate (ADEQUATE) 05/04/18 05:45 MPV 7.4 fL (7.4-11.0) 05/07/18 05:44 Neut % (Auto) 69.3 % (42.0-75.0) 05/07/18 05:44 Lymph % (Auto) 19.5 % (21.0-51.0) L 05/07/18 05:44 [place] % (Auto) 7.6 % (0.0-13.0) 05/07/18 05:44 Eos % (Auto) 2.7 % (0.9-2.9) 05/07/18 05:44 Baso % (Auto) 0.9 % (0.2-1.0) 05/07/18 05:44 Neut # (Auto) 6.4 x10^3/uL (2.2-4.8) H 05/07/18 05:44 Lymph # (Auto) 1.8 X10^3/uL (1.3-2.9) 05/07/18 05:44 [place] # (Auto) 0.7 x10^3/uL (0.3-0.8) 05/07/18 05:44 Eos # (Auto) 0.2 x10^3/uL (0.0-0.2) 05/07/18 05:44 Baso # (Auto) 0.1 X10^3/uL (0.0-0.1) 05/07/18 05:44 Absolute Nucleated RBC 0.0 /100WBC 05/07/18 05:44 Total Counted 100 05/04/18 05:45 Neutrophils % (Manual) 81 % (39-76) H 05/04/18 05:45 Band Neutrophils % 5 % (0-10) 05/04/18 05:45 Lymphocytes % (Manual) 12 % (13-43) L 05/04/18 05:45 Monocytes % (Manual) 1 % (4-9) L 05/04/18 05:45 Eosinophils % (Manual) 1 % (0-6) 05/04/18 05:45 Plt Morphology Comment Normal (NORMAL) 05/04/18 05:45 RBC Morphology Normal (NORMAL) 05/04/18 05:45 Sodium 145 mmol/L (136-145) 05/07/18 05:44 Corrected Sodium 147 mmol/L (136-145) H 05/07/18 05:44 Potassium 3.4 mmol/L (3.5-5.1) L 05/07/18 05:44 Chloride 109 mmol/L (98-107) H 05/07/18 05:44 Carbon Dioxide 31.1 mmol/L (21-32) 05/07/18 05:44 BUN 6 mg/dL (7-18) L 05/07/18 05:44 Creatinine 0.82 mg/dL (0.55-1.02) 05/07/18 05:44 Est GFR (MDRD) Af Amer > 60 (>60) 05/07/18 05:44 Est GFR (MDRD) Non-Af > 60 (>60) 05/07/18 05:44 Glucose 204 mg/dL (65-99) H 05/07/18 05:44 POC Glucose (mg/dL) 213 mg/dL (65-99) H 05/07/18 06:11 Calcium 7.7 mg/dL (8.5-10.1) L 05/07/18 05:44 Corrected Calcium 9.6 mg/dL (8.5-10.1) 05/07/18 05:44 Magnesium 1.7 mg/dL (1.7-2.9) 05/06/18 05:30 Total Bilirubin 0.20 mg/dL (0.2-1.0) 05/07/18 05:44 AST 14 Units/L (15-37) L 05/07/18 05:44 ALT 16 Units/L (12-78) 05/07/18 05:44 Alkaline Phosphatase 104 Units/L (46-116) 05/07/18 05:44 C-Reactive Protein 3.20 mg/L (0-3.0) H 04/26/18 12:20 Total Protein 5.6 g/dL (6.4-8.2) L 05/07/18 05:44 Albumin 1.6 g/dL (3.4-5.0) L 05/07/18 05:44 Globulin 4.0 g/dL (2.5-4.5) 05/07/18 05:44 Albumin/Globulin Ratio 0.4 Ratio (1.1-2.1) L 05/07/18 05:44 Specimen Type Catherized urine 04/29/18 11:30 Urine Color Yellow (YELLOW) 04/29/18 11:30 Urine Appearance Hazy (CLEAR) 04/29/18 11:30 Urine pH 5.0 (5.0 - 8.0) 04/29/18 11:30 Ur Specific [place] 1.015 (1.000-1.030) 04/29/18 11:30 Urine Protein 1+ (NEGATIVE) 04/29/18 11:30 Urine Glucose (UA) Negative (NEGATIVE) 04/29/18 11:30 Urine Ketones Negative (NEGATIVE) 04/29/18 11:30 Urine Occult Blood 3+ (NEGATIVE) 04/29/18 11:30 Urine Nitrite Negative (NEGATIVE) 04/29/18 11:30 Urine Bilirubin Negative (NEGATIVE) 04/29/18 11:30 Urine Urobilinogen Normal (NORMAL) 04/29/18 11:30 Ur Leukocyte Esterase Negative (NEGATIVE) 04/29/18 11:30 Urine RBC 0-2 /HPF (NONE SEEN) 04/29/18 11:30 Urine WBC 0-2 /HPF (NONE SEEN) 04/29/18 11:30 Ur Squamous Epith Cells Rare /HPF (NEGATIVE) 04/29/18 11:30 Amorphous Sediment 1+ /HPF (NEGATIVE) 04/29/18 11:30 Urine Bacteria Trace /HPF (NEGATIVE) 04/29/18 11:30 Hyaline Casts Many /LPF (NEGATIVE) 04/27/18 02:00 Ur Culture Indicated? No/not indicated 04/29/18 11:30 Vancomycin Trough 20.1 ug/mL (15-20) H 05/06/18 20:45 Tissue Pathology To follow 05/06/18 09:28 - Assessment and Plan 1: perianal abscess with large Rt buttock necrotic ulcer .s/p debridement. on IV ATB . 2: DM ,controlled 3: Morbid obesity . same local care , IV ATB and DVT prophylaxis . - Problem Patient Problems: Patient Problems Mild dehydration (Acute) E86.0 Cellulitis and abscess of buttock (Acute) L02.31, L03.317 Acute hyponatremia (Acute) E87.1 Metabolic acidosis (Acute) E87.2 Diabetes (Acute) E11.9 Necrotic eschar (Resolved) L98.8
[2018-05-07] MEDS: LEVAQUIN PREMIX IV 750 MG 750 MG/150 ML BAG IV SCH (08:00)
[2018-05-07] MEDS: VANCOMYCIN HCL 500 MG VIAL 750 MG in NS 250 ML IV 250 ML IV SCH ×2 (08:01→20:58)
[2018-05-07] MEDS: LOVENOX INJ 40 MG SYR SC SCH (08:04)
[2018-05-07] MEDS: ZINC SULFATE PO SCH (08:04)
[2018-05-07] MEDS: VITAMIN C PO SCH ×2 (08:05→20:56)
[2018-05-07] MEDS: DITROPAN TAB 5 MG PO SCH (08:05)
[2018-05-07] MEDS: PROTONIX TAB 40 MG PO SCH (08:05)
[2018-05-07] MEDS: COZAAR PO SCH (08:05)
[2018-05-07] MEDS: ULTRAM PO SCH ×2 (08:05→20:55)
[2018-05-07] MEDS: DIFLUCAN PO SCH (08:05)
[2018-05-07] MEDS: CYMBALTA PO SCH ×2 (10:00→20:55)
[2018-05-07] MEDS ORDERED: LASIX IVP ONE (12:55)
[2018-05-07] MEDS: KLOR-CON PO PRN ×2 (15:38→16:10)
[2018-05-07] MEDS: K-DUR TAB 20 MEQ PO PRN (16:11)
[2018-05-07] MEDS: NORCO 5/325 MG TAB PO PRN ×3 (16:13→22:45)
[2018-05-07] MEDS: COLACE CAP 100 MG PO SCH (20:56)
[2018-05-07] MEDS: SNACK - Diabetic Appropriate PO SCH (20:57)
[2018-05-07] MEDS: MILK OF MAGNESIA PO SCH (20:57)
[2018-05-07] MEDS: XANAX PO SCH (20:57)
[2018-05-08] MEDS: NS 500 ML IV 500 ML IV SCH (01:28)
[2018-05-08] MEDS: NORCO 5/325 MG TAB PO PRN ×2 (04:14→11:30)
[2018-05-08 06:13] LABS: ALANINE AMINOTRANSFERASE 14 Units/L (12-78); ALBUMIN 1.6 g/dL (3.4-5.0); ALKALINE PHOSPHATASE 95 Units/L (46-116); ASPARTATE AMINO TRANSFERASE 15 Units/L (15-37); BLOOD UREA NITROGEN 6 mg/dL (7-18); CALCIUM 7.7 mg/dL (8.5-10.1); CARBON DIOXIDE 29.8 mmol/L (21-32); CHLORIDE 110 mmol/L (98-107); COR CA(FOR HYPOALB) 9.6 mg/dL (8.5-10.1); COR NA(FOR HYPERGLY) 146 mmol/L (136-145); CREATININE 0.76 mg/dL (0.55-1.02); SODIUM 144 mmol/L (136-145); TOTAL PROTEIN 5.5 g/dL (6.4-8.2); eGFR NON BLACK RACES > 60 (>60)
[2018-05-08 06:19] LABS: BASOPHILS # (AUTO) 0.1 X10^3/uL (0.0-0.1); BASOPHILS % (AUTO) 0.8 % (0.2-1.0); EOSINOPHILS # (AUTO) 0.2 x10^3/uL (0.0-0.2); EOSINOPHILS % (AUTO) 2.7 % (0.9-2.9); HEMATOCRIT 25.4 % (36.0-47.0); HEMOGLOBIN 8.7 g/dL (12.0-16.0); LYMPHOCYTES # (AUTO) 1.7 X10^3/uL (1.3-2.9); LYMPHOCYTES % (AUTO) 20.3 % (21.0-51.0); MEAN CORPUSCULAR HGB CONC 34.2 g/dL (33.0-35.0); MEAN CORPUSCULAR VOLUME 90.8 fL (80.0-100.0); MEAN PLATELET VOLUME 7.5 fL (7.4-11.0); MONOCYTES # (AUTO) 0.6 x10^3/uL (0.3-0.8); MONOCYTES % (AUTO) 7.3 % (0.0-13.0); NEUTROPHILS # (AUTO) 5.8 x10^3/uL (2.2-4.8); NEUTROPHILS % (AUTO) 68.9 % (42.0-75.0); PLATELET COUNT 196 X10^3/uL (150.0-450.0); RED CELL DISTRIBUTION WIDTH 13.7 % (11.6-16.5); WHITE BLOOD COUNT 8.5 X10^3/uL (3.6-10.0)
[2018-05-08] MEDS: HumuLIN R SC PRN (06:30)
[2018-05-08] MEDS ORDERED: PHARMACY COMMENT IV SCH (08:45)
[2018-05-08 09:01] LABS: CREATININE 0.76 mg/dL (0.55-1.02); VANCOMYCIN,TROUGH 14.8 ug/mL (15-20)
[2018-05-08] MEDS: COZAAR PO SCH (09:03)
[2018-05-08] MEDS: VITAMIN C PO SCH (09:03)
[2018-05-08] MEDS: PROTONIX TAB 40 MG PO SCH (09:03)
[2018-05-08] MEDS: DIFLUCAN PO SCH (09:03)
[2018-05-08] MEDS: DITROPAN TAB 5 MG PO SCH (09:03)
[2018-05-08] MEDS: ZINC SULFATE PO SCH (09:03)
[2018-05-08] MEDS: ULTRAM PO SCH (09:03)
[2018-05-08] MEDS: LEVAQUIN PREMIX IV 750 MG 750 MG/150 ML BAG IV SCH (09:04)
[2018-05-08] MEDS: LOVENOX INJ 40 MG SYR SC SCH (09:04)
[2018-05-08] MEDS ORDERED: HYDROGEN PEROXIDE 3% ONE (09:16)
[2018-05-08] MEDS: VANCOMYCIN HCL 500 MG VIAL 750 MG in NS 250 ML IV 250 ML IV SCH (11:24)
[2018-05-08] MEDS: CYMBALTA PO SCH (11:25)
[2018-05-08] MEDS: MORPHINE SULFATE INJ 2 MG INJ IVP PRN (12:59)
[2018-05-08 13:07] VITALS: BP 174/76
== END 2018-05-08 13:50 | disposition home health service (06) | DRG 571 ==
LOC: MED/SURG 11:14 → ER 11:14 → OBSVTOIN 15:54 → MED/SURG 16:51
PROVIDERS: ADMIT Internal Medicine; ATTEND Internal Medicine
DX: E86.0 Dehydration; Z66 Do not resuscitate; R26.89 Other abnormalities of gait and mobility; E87.1 Hypo-osmolality and hyponatremia; Z79.4 Long term (current) use of insulin; R79.82 Elevated C-reactive protein (CRP); R94.4 Abnormal results of kidney function studies; L02.31 Cutaneous abscess of buttock; E11.65 Type 2 diabetes mellitus with hyperglycemia; R23.4 Changes in skin texture; E87.2 Acidosis; L03.317 Cellulitis of buttock; I10 Essential (primary) hypertension; E87.6 Hypokalemia; B95.2 Enterococcus as the cause of diseases classified elsewhere; E66.01 Morbid (severe) obesity due to excess calories
CPT/HCPCS: 36415; 36569; 71010; 71020; 71045; 71046; 80053; 80202; 81001; 82565; 83735; 84132; 85025; 86140; 87040; 87070; 87075; 87077; 87186; 87205; 93005; 93010; 94760; 96365; 96367; 96374; 96375; 97110; 97116; 97163; 97166; 97530; 97535; 99231; 99282; 99284; A4216; A4222; S0077; J1170; J1650; J1815; J1940; J1956; J2250; J2270; J2704; J2765; J3010; J3370; J3475; J3480; J7030; J7040; J7050; J7060; J7120